=== PATIENT | female | born 1935 | race Caucasian/White ===

== ENCOUNTER 2022-06-02 20:59 | Inpatient (IN) ==
[2022-06-02 21:40] LABS: Basophils # (auto) 0.08 K/uL (0-0.2); Basophils % (auto) 0.7 %; Eosinophils # (auto) 0.08 K/uL (0-0.50); Eosinophils % (auto) 0.7 %; Hematocrit (blood only) 39.5 % (34.1-44.9); Hemoglobin 12.4 g/dl (12.0-16.0); Immature Granulocytes # (auto) 0.08 K/uL (0.00-0.02); Immature Granulocytes % (auto) 0.7 %; Lymphocytes # (auto) 1.26 K/uL (1.2-3.4); Lymphocytes % (auto) 11.4 %; Mean Corpuscular Hemoglobin 26.4 pg (25.0-34.0); Mean Corpuscular Hgb Conc 31.4 g/dL (32.0-36.0); Mean Platelet Volume 10.9 fL (9.4-12.3); Monocytes # (auto) 1.19 K/uL (0.24-0.82); Monocytes % (auto) 10.7 %; Neutrophils # (auto) 8.38 K/uL (1.4-6.5); Neutrophils % (auto) 75.8 %; Platelet Count 313 K/uL (130-400); RDW Coefficient of Variation 14.9 % (11.5-14.5); RDW Standard Deviation 45.7 fL (36.4-46.3); White Blood Count 11.07 K/ul (4.8-10.8)
[2022-06-02 21:42] LABS: INR 1.3 (0.9-1.1); Partial Thromboplastin Ratio 1.1; Partial Thromboplastin Time 31.5 Seconds (21.0-31.0); Prothrombin Time 13.7 Seconds (9.0-12.0)
[2022-06-02 21:49] LABS: Alanine Aminotransferase 4 U/L (7-52); Albumin Globulin Ratio 1.1 (0.9-2); Albumin Level 3.7 gm/dl (3.4-5.0); Alkaline Phosphatase 93 U/L (34-104); Anion Gap 10 (3-11); Aspartate Aminotransferase 24 U/L (13-39); BUN Creatinine Ratio 19.2 (10-20); Bilirubin,Total 0.8 mg/dl (0.2-1.0); Blood Urea Nitrogen 14 mg/dl (6-23); Calcium 9.3 mg/dl (8.5-10.1); Carbon Dioxide 28 mmol/L (21-32); Chloride 99 mmol/L (98-107); Est GFR (African American) 87.7 ml/min; Est GFR (Non-African American) 75.6 ml/min; Globulin 3.5 gm/dl (2.5-4.0); Glucose 132 mg/dl (70-99(Fasting)); Potassium 3.9 mmol/L (3.5-5.1); Sodium 137 mmol/L (136-145); Total Protein 7.2 gm/dl (6.0-8.3)
--- NOTE | 2022-06-02 22:20 | Emergency Department Note ---
History of Present Illness General Chief complaint: Cardiac Assessment Stated complaint: CHEST PRESSURE Time Seen by Provider: 06/02/22 22:04 Source: patient and family (Son and [id number] who are at bedside) Mode of arrival: ambulatory Limitations: no limitations History of Present Illness This patient is a an 86-year-old female who comes in with left-sided chest pain that radiates to her back and arm started around 730. They called the ambulance and she received aspirin and 1 nitro spray she now has no pain she has no shortness of breath she wears oxygen if needed at home she is started on macro Sanders for a UTI today. She fell about a week ago but no recent fall no nausea vomiting abdominal pain she feels better at present. Home Medications Medication Instructions Recorded Confirmed Type apixaban 5 mg tablet (Eliquis) 5 mg PO BID 06/02/22 06/02/22 History calcium carbonate 500 mg calcium 500 mg PO .DAILY WITH LUNCH 06/02/22 06/02/22 History (1,250 mg) chewable tablet cholecalciferol (vitamin D3) 25 25 mcg PO .DAILY WITH LUNCH 06/02/22 06/02/22 History mcg (1,000 unit) tablet (Vitamin D3) losartan 25 mg tablet 50 mg PO QPM 06/02/22 06/02/22 History metoprolol tartrate 25 mg tablet 25 mg PO BID 06/02/22 06/02/22 History montelukast 10 mg tablet 10 mg PO QPM 06/02/22 06/02/22 History nitrofurantoin macrocrystal 50 mg 50 mg PO BID 06/02/22 06/02/22 History capsule oxybutynin chloride 5 mg tablet 5 mg PO BID 06/02/22 06/02/22 History pantoprazole 20 mg tablet,delayed 20 mg PO DAILYBB 06/02/22 06/02/22 History release raloxifene 60 mg tablet 60 mg PO QAM 06/02/22 06/02/22 History rosuvastatin 20 mg tablet 20 mg PO QPM 06/02/22 06/02/22 History sertraline 50 mg tablet 50 mg PO QAM 06/02/22 06/02/22 History Allergies Allergy/AdvReac Type Severity Reaction Status Date / Time Penicillins Allergy Rash Verified 06/02/22 23:14 Sulfa (Sulfonamide Allergy Rash Verified 06/02/22 23:14 Antibiotics) Past Med/Surg History Social History Smoking Status: Never smoker Preferred Language: Congolese Feels Safe at Home: Yes Immunizations: Past medical historycristina had a cath 4 years ago in [place] which was complicated by aortic dissection. She is on Eliquis as she had a PE/DVT on December 16. Social historycristina is followed by Sissy Pathak and lives in [place] Review of Systems A total of 10 systems reviewed and were otherwise negative Physical Exam Vital Signs Vital Signs - 24 hr 06/02/22 21:20 06/02/22 21:24 06/02/22 22:00 Temperature 36.5 C Temperature Source Oral Pulse Rate 99 H 95 H Pulse Rate from SpO2 Sensor 94 H Respiratory Rate 24 28 H Respiratory Effort / Characteristics Non-Labored Spontaneous Respiratory Depth Normal Normal Blood Pressure 103/72 127/90 Blood Pressure Mean 82 102 Pulse Oximetry 99 97 Oxygen Delivery Method Nasal Cannula Nasal Cannula Nasal Cannula Oxygen Flow Rate 3 3 3 Sepsis New/Unexplained Change in Mental Status N/A Sepsis Action Taken by Nursing No Action Required 06/02/22 22:30 06/02/22 23:00 06/03/22 00:00 Temperature Temperature Source Pulse Rate 91 H 84 94 H Pulse Rate from SpO2 Sensor 91 H 83 95 H Respiratory Rate 28 H 26 H 26 H Respiratory Effort / Characteristics Respiratory Depth Blood Pressure 129/88 144/84 H 143/118 H Blood Pressure Mean 101 104 126 Pulse Oximetry 94 96 97 Oxygen Delivery Method Nasal Cannula Nasal Cannula Nasal Cannula Oxygen Flow Rate 3 3 3 Sepsis New/Unexplained Change in Mental Status Sepsis Action Taken by Nursing General: Well developed well nourished older female who in no acute distress, breathing comfortably on room air. Normal speech HEENT: Normal cephalic atraumatic. Pupils are equal round and reactive to light . Extraocular movements are intact. Oropharynx is pink with moist mucous membranes. No swelling of the mouth lips or tongue. Neck: Supple with a midline trachea. No meningeal signs or stiffness, no JVD or bruits. No Stridor. Chest: Clear to auscultation bilaterally. No wheezes or rhonchi. No increased work of breathing. Heart: Regular rate and rhythm without murmurs or gallops. Abdomen: Soft nontender, nondistended without rebound guarding or rigidity. Extremities: No cyanosis clubbing or edema. No calf tenderness or assymetry Spine/Back. Non tender to palpation. No CVA tenderness Skin: Good turgor without rashes. Neurologic exam: Cranial nerves two through 12 are intact. Motor and sensation are intact and symmetrical throughout. Course Administered Medications Discontinued Medications Ioversol (Optiray 320 500ml) 125 ml IV ONCE ONE Stop: 06/03/22 00:00 Last Admin: 06/02/22 23:59 Dose: 105 ml Documented By: EMILE Medical Decision Making Differential Diagnosis Acute coronary syndrome, arrhythmia, aortic pathology, PE, electrolyte or metabolic abnormality, infection Medical Records Attestation: I reviewed the patient's medical records. Home Medications Current Medication List: was personally reviewed by me Laboratory Data Attestation: I reviewed the patient's lab results. Result diagrams: 06/02/22 21:15 06/02/22 21:15 Lab Results 06/02/22 06/02/22 06/02/22 Range/Units 21:15 21:15 21:15 WBC 11.07 H (4.8-10.8) K/ul RBC 4.70 (3.93-5.22) M/uL Hgb 12.4 (12.0-16.0) g/dl Hct 39.5 (34.1-44.9) % MCV 84.0 (80.0-100.0) fL MCH 26.4 (25.0-34.0) pg MCHC 31.4 L (32.0-36.0) g/dL RDW Std Deviation 45.7 (36.4-46.3) fL RDW Coeff of Mercedes 14.9 H (11.5-14.5) % Plt Count 313 (130-400) K/uL MPV 10.9 (9.4-12.3) fL Immature Gran % (Auto) 0.7 % Neut % (Auto) 75.8 % Lymph % (Auto) 11.4 % [place] % (Auto) 10.7 % Eos % (Auto) 0.7 % Baso % (Auto) 0.7 % Neut # (Auto) 8.38 H (1.4-6.5) K/uL Lymph # (Auto) 1.26 (1.2-3.4) K/uL [place] # (Auto) 1.19 H (0.24-0.82) K/uL Eos # (Auto) 0.08 (0-0.50) K/uL Baso # (Auto) 0.08 (0-0.2) K/uL Immature Gran # (Auto) 0.08 H (0.00-0.02) K/uL PT 13.7 H (9.0-12.0) Seconds INR 1.3 H (0.9-1.1) APTT 31.5 H (21.0-31.0) Seconds PTT Ratio 1.1 D-Dimer (0-500) ug/L FEU Sodium 137 (136-145) mmol/L Potassium 3.9 (3.5-5.1) mmol/L Chloride 99 (98-107) mmol/L Carbon Dioxide 28 (21-32) mmol/L Anion Gap 10 (3-11) BUN 14 (6-23) mg/dl Creatinine 0.73 (0.6-1.2) mg/dl Est Cr Clr Drug Dosing Not Reportable Est GFR ( Amer) 87.7 ml/min Est GFR (Non-Af Amer) 75.6 ml/min BUN/Creatinine Ratio 19.2 (10-20) Glucose 132 H (70-99(Fasting)) mg/dl Calcium 9.3 (8.5-10.1) mg/dl Total Bilirubin 0.8 (0.2-1.0) mg/dl AST 24 (13-39) U/L ALT 4 L (7-52) U/L Alkaline Phosphatase 93 (34-104) U/L Troponin I High Sens 251.2 H* (0-14) pg/ml Total Protein 7.2 (6.0-8.3) gm/dl Albumin 3.7 (3.4-5.0) gm/dl Globulin 3.5 (2.5-4.0) gm/dl Albumin/Globulin Ratio 1.1 (0.9-2) Lipase (11-82) U/L SARS-CoV-2, RNA, NAAT (NEGATIVE) 06/02/22 06/02/22 06/02/22 Range/Units 21:15 22:27 22:44 WBC (4.8-10.8) K/ul RBC (3.93-5.22) M/uL Hgb (12.0-16.0) g/dl Hct (34.1-44.9) % MCV (80.0-100.0) fL MCH (25.0-34.0) pg MCHC (32.0-36.0) g/dL RDW Std Deviation (36.4-46.3) fL RDW Coeff of Mercedes (11.5-14.5) % Plt Count (130-400) K/uL MPV (9.4-12.3) fL Immature Gran % (Auto) % Neut % (Auto) % Lymph % (Auto) % [place] % (Auto) % Eos % (Auto) % Baso % (Auto) % Neut # (Auto) (1.4-6.5) K/uL Lymph # (Auto) (1.2-3.4) K/uL [place] # (Auto) (0.24-0.82) K/uL Eos # (Auto) (0-0.50) K/uL Baso # (Auto) (0-0.2) K/uL Immature Gran # (Auto) (0.00-0.02) K/uL PT (9.0-12.0) Seconds INR (0.9-1.1) APTT (21.0-31.0) Seconds PTT Ratio D-Dimer 6810 H* (0-500) ug/L FEU Sodium (136-145) mmol/L Potassium (3.5-5.1) mmol/L Chloride (98-107) mmol/L Carbon Dioxide (21-32) mmol/L Anion Gap (3-11) BUN (6-23) mg/dl Creatinine (0.6-1.2) mg/dl Est Cr Clr Drug Dosing Est GFR ( Amer) ml/min Est GFR (Non-Af Amer) ml/min BUN/Creatinine Ratio (10-20) Glucose (70-99(Fasting)) mg/dl Calcium (8.5-10.1) mg/dl Total Bilirubin (0.2-1.0) mg/dl AST (13-39) U/L ALT (7-52) U/L Alkaline Phosphatase (34-104) U/L Troponin I High Sens 637.3 H* D (0-14) pg/ml Total Protein (6.0-8.3) gm/dl Albumin (3.4-5.0) gm/dl Globulin (2.5-4.0) gm/dl Albumin/Globulin Ratio (0.9-2) Lipase 32 (11-82) U/L SARS-CoV-2, RNA, NAAT NEGATIVE (NEGATIVE) Imaging Data Attestation: I personally reviewed and interpreted this imaging study as follows: My Impression: Chest x-rayno acute infiltrate, failure, pneumothorax seen Radiologist's Impression: CTA of the chest -preliminary Findings Only See Final Report For Complete Findings CTA CHEST: Ascending thoracic aortic aneurysm measures 4.4 x 4.1 cm without dissection Respiratory motion artifact degrades the study through the lung bases. No obvious PE is identified Pulmonary nodules and mass lesion measuring up to 14 mm may reflect metastatic disease requiring definitive evalua tion No acute airspace disease or effusions Ill-defined hepatic hypodensities suspicious for hepatic metastatic disease noted Radiologist: Jose Antonio Nicholas MD Study ready at 00:01 and initial results ECG Data Attestation: I personally reviewed and interpreted this ECG as follows: Indication: + chest pain Rate (beats per minute): 99 Rhythm: + normal sinus ECG Intervals/blocks: + Normal QRS, + Normal QT and + Normal IN ECG [place]: + Normal ECG ST segments: + Normal ST segments ECG Findings: + Poor R wave progression; no PACs or no PVCs Comparison ECG Date: no prior available Additional Comments: EKG #2: Normal sinus rhythm rate of 84, no acute ischemic changes or ectopy. No significant change compared to EKG #1 MDM Narrative This patient comes in as described above. She was placed on a electronic device monitor in room B6. She is here for treatment evaluation of chest pain. She has no pain at present she received aspirin and nitro spray x1. IV access was established, EKG, chest x-ray multiple blood test was obtained. she was reassessed frequently. EKG initially does not show any ischemic changes it is second there is no change compared to the first. Troponin was elevated and second was even more elevated her D-dimer was also significantly elevated I did a CTA of her chest and there is no evidence of acute dissection or PE. She has some aneurysmal dilation of 4 cm of the thoracic aorta. She has no significant electrolyte or metabolic abnormalities . she has remained comfortable without EKG changes. I do think she needs to be admitted/observed and I have consulted Dr. Guerrero to to see her. Her second troponin is also elevated compared to the first and when I go back and check her she denies any chest pain is resting comfortably. She will need to be admitted and I am concerned that she may have an NSTEMI but she has no evidence of ST segment elevation STEMI at this point. She did receive aspirin prior to arrival. who saw her and will admit Continuous cardiac monitoring: Orders placed in the EMR for continuous cardiac monitoring. Fall interpretation he was found to be in normal sinus rhythm with with ectopy rate was 95. Impression & Plan Non-STEMI (non-ST elevated myocardial infarction), Chest pain, Aneurysm of thoracic aorta, Lab test negative for COVID-19 virus, Elevated troponin, Elevated d-dimer Discharge Plan Visit Data Chief Complaint: Cardiac Assessment Stated Complaint: CHEST PRESSURE ED Provider: Terrell Bullock Discharge Problem: Non-STEMI (non-ST elevated myocardial infarction), Chest pain, Aneurysm of thoracic aorta, Lab test negative for COVID-19 virus, Elevated troponin, Elevated d-dimer Patient Disposition: Admitted As Inpatient Discharge Instructions Interventions: ED Discharge Assessment Last Done: 06/03/22 01:19
[2022-06-02 22:24] LABS: Troponin I High Sensitivity 251.2 pg/ml (0-14)
[2022-06-02 22:53] LABS: D Dimer 6810 ug/L FEU (0-500)
[2022-06-02 23:38] LABS: Troponin I High Sensitivity 637.3 pg/ml (0-14)
[2022-06-02] MEDS ORDERED: OPTIRAY 320 500ml IV ONE (23:59)
[2022-06-03] MEDS ORDERED: NITROGLYCERIN SL 0.4 MG/TAB TAB SL PRN (01:46)
[2022-06-03] MEDS ORDERED: SODIUM CHLORIDE 0.9% 1000ML 1,000 ML IV SCH (01:46)
[2022-06-03] MEDS ORDERED: ACETAMINOPHEN 325 MG TAB PO PRN (01:46)
[2022-06-03] MEDS ORDERED: METOPROLOL TARTRATE 25 MG TAB PO STA (01:53)
[2022-06-03] MEDS ORDERED: ROSUVASTATIN CALCIUM 20 MG TAB PO STA (01:53)
[2022-06-03] MEDS ORDERED: ASPIRIN CHEW 324 MG PO STA (01:53)
[2022-06-03] MEDS ORDERED: APIXABAN 5 MG TABLET PO STA (01:53)
[2022-06-03] MEDS ORDERED: nitrofurantoin macrocrystaL 50 MG CAP PO STA (02:26)
[2022-06-03] MEDS ORDERED: INFLUENZA VACCINE HIGH DOSE PF 65+ 0.7 ML SYR IM ONE (02:48)
--- NOTE | 2022-06-03 03:01 | History and Physical Report ---
DATE OF ADMISSION: 06/03/2022. CHIEF COMPLAINT: Chest pain. HISTORY OF PRESENT ILLNESS: An 86-year-old female with past medical history significant for hyperlipidemia, impaired fasting glucose, history of asthma, allergic rhinitis, hypertension, GERD, vitamin D deficiency, history of constipation, female stress incontinence, osteoporosis, history of depression and anxiety,hx of DVT/PE after right femur fx repair this May who lives alone at home, ambulates with a walker. She is on regular diet. Was brought in because of chest pain. Son and [id number] are in the room. The patient, around 7:00 p.m., she had severe chest pain, it was also radiating to her left arm. When it was not getting better, she pressed the emergency button and brought in here. The patient is somewhat hard of hearing, but answering appropriately. She says after aspirin and nitroglycerin were given, the pain is resolved, but later she had some soreness in the chest, but right now she is saying the pain is gone. She denies any shortness of breath, no dizziness, no sweating, no nausea, no abdominal pain. Normal bowel and bladder movements. She has chronic swelling in the legs. Denies any headache. Vision is okay. She says she has some sinusitis and chronic cough. No sore throat, no difficulty swallowing. Appetite is not great. No fevers. Currently, resting comfortably and hemodynamically stable. ALLERGIES: PENICILLINS AND SULFA ANTIBIOTICS. PAST MEDICAL HISTORY: As mentioned above. PAST SURGICAL HISTORY: Cardiac catheterization, right femur fracture surgical repair, colonoscopy, total hysterectomy, bilateral removal of the ovaries and oviducts. MEDICATIONS: The patient is on Eliquis 5 mg p.o. b.i.d., calcium carbonate 500 mg p.o. daily with lunch, vitamin D 25 mcg p.o. daily, losartan 50 mg p.o. daily, metoprolol tartrate 25 mg p.o. b.i.d., montelukast 10 mg p.o. a.m., nitrofurantoin 50 mg p.o. b.i.d., oxybutynin 5 mg p.o. b.i.d., Protonix 20 mg p.o. daily, raloxifene 60 mg p.o. a.m., rosuvastatin 20 mg p.o. a.m., sertraline 50 mg p.o. a.m. FAMILY HISTORY: Significant for father has asthma, black lung; sister has breast cancer , sister has polio and valve replacement; mother has stroke. SOCIAL HISTORY: Currently lives alone. No smoking, no alcohol, no drug use. REVIEW OF SYSTEMS: As per HPI. Rest of the review of systems is negative. PHYSICAL EXAMINATION: GENERAL: The patient is old and frail, very hard of hearing, not in acute distress. VITAL SIGNS: Temperature 36.5, pulse 94, respiratory rate 26, blood pressure 143/118, oxygen 97% on 3 liters. HEENT: Pupils equal, round and reactive to light. Oral mucosa dry. NECK: No JVD, no neck masses. CARDIOVASCULAR: S1 and S2 heard. Regular rate and rhythm. No murmur, no gallop. RESPIRATORY SYSTEM: Normal AP diameter. No accessory muscle use. No wheezing, no crackles. ABDOMEN: Soft, bowel sounds present, nontender, no distention. CENTRAL NERVOUS SYSTEM: Cranial nerves II-XII grossly intact, nonfocal. EXTREMITIES: Lower extremity edema present, no erythema seen. LABORATORY DATA: WBC 11, hemoglobin 12.4, hematocrit 39.5, platelets 313. PT 13.7, INR 1.3, APTT 31.5, D-dimer 6810. Sodium 137, potassium 3.9, chloride 99, CO2 of 28, BUN 14, creatinine 0.7, serum glucose 132, calcium 9.3, total bilirubin 0.8, AST 24, ALT 4, alkaline phosphatase 93. Troponin I high sensitivity initially first set was 251, second set was 637, lipase 32. SARS-CoV-2 rapid test negative. IMAGING DATA: Chest x-ray, no acute findings. Poor inspiratory effort. ELECTROCARDIOGRAM: Normal sinus rhythm, rate of 84, No acute st changes seen. . No previous ekg to compare. ASSESSMENT AND PLAN: This is an 86-year-old female who presents with chest pain. 1. Chest pain: Possible non-ST elevated OK. As per family, the patient has history of some blockages. She had cardiac catheterization in 2018 at [facility], which ended up in complication, with aortic dissection. She was transferred to [facility] at that time. Currently with aspirin and nitroglycerin, the patient's pain is resolved. Will follow the repeat EKG with serial cardiac enzymes. The patient is already on Eliquis and metoprolol and statin. Will add aspirin. We will keep her n.p.o. Consult cardiology in the a.m. We will follow echocardiogram. Closely monitor in the [employer] tele for now.Will follow CTA chest. 2. History of deep venous thrombosis and pulmonary embolism: The patient developed deep venous thrombosis and pulmonary embolism after right femur fracture repair in November of this year.On eliquis. 3. Hypertension: Continue losartan and metoprolol. Will monitor the blood pressure. 4. Hyperlipidemia: On statin. 5. Depression and anxiety: On Zoloft. 6. History of asthma: On montelukast. Seems to be currently stable. 7. History of stress urinary incontinence: On oxybutynin. 8. Urinary tract infection: She seems to be started on Macrobid today, will continue. Follow the urinalysis. 9. Deep venous thrombosis prophylaxis: On Eliquis. DISPOSITION: Closely monitor in the [employer]. PT/OT prior to discharge. Social service to help with discharge planning. Job ID: [id number] VASILIY
[2022-06-03 06:08] LABS: Basophils # (auto) 0.06 K/uL (0-0.2); Basophils % (auto) 0.5 %; Eosinophils # (auto) 0.05 K/uL (0-0.50); Eosinophils % (auto) 0.4 %; Hemoglobin 12.3 g/dl (12.0-16.0); Immature Granulocytes # (auto) 0.15 K/uL (0.00-0.02); Immature Granulocytes % (auto) 1.2 %; Lymphocytes # (auto) 1.53 K/uL (1.2-3.4); Lymphocytes % (auto) 12.7 %; Mean Corpuscular Hemoglobin 26.5 pg (25.0-34.0); Mean Corpuscular Hgb Conc 32.4 g/dL (32.0-36.0); Mean Corpuscular Volume 81.7 fL (80.0-100.0); Mean Platelet Volume 10.4 fL (9.4-12.3); Monocytes # (auto) 1.29 K/uL (0.24-0.82); Monocytes % (auto) 10.7 %; Neutrophils # (auto) 9.01 K/uL (1.4-6.5); Neutrophils % (auto) 74.5 %; Platelet Count 302 K/uL (130-400); RDW Coefficient of Variation 15.1 % (11.5-14.5); RDW Standard Deviation 45.3 fL (36.4-46.3); Red Blood Count 4.65 M/uL (3.93-5.22); White Blood Count 12.09 K/ul (4.8-10.8)
[2022-06-03] MEDS: PANTOprazole 40 MG TAB PO SCH (06:34)
[2022-06-03 06:40] LABS: Troponin I High Sensitivity 2894.7 pg/ml (0-14)
[2022-06-03 06:53] LABS: BUN Creatinine Ratio 20.6 (10-20); Calcium 9.3 mg/dl (8.5-10.1); Est GFR (African American) 95.5 ml/min; Est GFR (Non-African American) 82.4 ml/min; Magnesium 2.2 mg/dl (1.7-2.4); Potassium 3.9 mmol/L (3.5-5.1)
--- NOTE | 2022-06-03 07:15 | CT Scan Report ---
CT ANGIOGRAM OF THE CHEST CLINICAL HISTORY: Atypical/left-sided chest pain. Dyspnea. COMPARISON STUDY: Chest x-ray dated 06/02/2022. TECHNIQUE: Following the IV administration of 105 cc of Optiray 320, CT angiogram of the chest was pe rformed from the upper abdomen to the thoracic inlet utilizing the pulmonary embolus protocol. Images are reviewed in the axial, sagittal, and coronal planes. 3-D MIPS images are created and assessed. I V contrast was administered without complication. A dose lowering technique was utilized adhering to the principles of ALARA. The examination is degraded by motion artifact. CT DOSE: 473.64 mGy.cm FINDINGS: Thyroid: Imaged portions of the thyroid gland are normal in size and attenuation. Thoracic aorta: There is atherosclerotic calcification of the thoracic aorta. There is aneurysmal dil atation of the ascending thoracic aorta which measures up to 4.4 cm in diameter. The remainder of the thoracic aorta is normal in caliber, and the arch demonstrates standard 3-vessel anatomy. No dissect ion is seen. Pulmonary vasculature: The pulmonary trunk is dilated, measuring up to 3.6 cm. This indicates pulmona ry artery hypertension. There are no filling defects identified in main, lobar, or segmental pulmonar y branches to suggest pulmonary embolus. Evaluation of the distal segmental and subsegmental branches is degraded by motion artifact. Heart: The heart is enlarged and without pericardial effusion. The coronary arteries are densely calc ified. Lungs and pleural spaces: Evaluation of the lung parenchyma is significantly degraded by motion artif act. There is elevation of the right hemidiaphragm. No airspace consolidation typical for pneumonia o r pleural effusion is identified. A 1.4 cm lobulated pulmonary nodule is seen in the right upper lobe on image #160. There are 2 right middle lobe pulmonary nodules seen on images #107 and #124 which me asure up to 6 mm. A 4 mm left apical nodule is seen on image #173. Scarring/atelectasis is seen at th e lung bases. Mediastinum: There is no mediastinal lymphadenopathy. Vianney: Clear. Axillae: There is no axillary lymphadenopathy. Upper abdomen: Numerous hepatic masses are consistent with multifocal hepatic metastatic disease. Skeletal structures: The skeletal structures are osteopenic. Spondylotic change is noted throughout t he spine. Arthritic change is seen in the shoulders. No lytic or blastic bony lesions are seen. IMPRESSION: 1. Motion degraded examination. 2. There is no evidence of pulmonary embolus in the main, lobar, or segmental pulmonary arteries. 3. There is no airspace consolidation typical for pneumonia or pleural effusion. 4. There is evidence of diffuse/multifocal hepatic metastatic disease. 5. Scattered pulmonary nodules as above. The largest is in the right upper lobe and measures 1.4 cm. These are pathologically indeterminate but highly suspicious for neoplasm given the hepatic findings. 6. Cardiomegaly with evidence of pulmonary artery hypertension. 7. Aneurysmal dilatation of the ascending thoracic aorta measuring up to 4.4 cm. 8. Additional findings as above. ACT 112: Negative or not required by law. Electronically signed by: Vito De Los Santos M.D. 06/03/2022 7:12 AM
[2022-06-03 07:52] LABS: Estimated Average Glucose 114 mg/dl; Hemoglobin A1C 5.6 % (4.5-5.6)
--- NOTE | 2022-06-03 08:01 | XRay Report ---
SINGLE VIEW CHEST CLINICAL HISTORY: Atypical chest pain. FINDINGS: An AP, portable, upright chest radiograph is obtained. No prior studies are available for c omparison at the time of dictation. The heart is enlarged noting atherosclerotic calcification of the thoracic aorta. The pulmonary vasculature is noncongested. Chronic interstitial thickening is simila r to previous. There is elevation of the right hemidiaphragm with bibasilar scarring/atelectasis. No airspace consolidation or large pleural effusion is seen. A pulmonary nodule in the right upper lobe measures 1.4 cm. No pneumothorax is seen. The skeletal structures are osteopenic. The bony thorax is grossly intact. IMPRESSION: 1. Cardiomegaly with no acute cardiopulmonary abnormality. 2. A 1.4 cm pulmonary nodule is seen in the right upper lobe. ACT 112: Negative or not required by law. Electronically signed by: Vito De Los Santos M.D. 06/03/2022 7:59 AM
--- NOTE | 2022-06-03 08:14 | Cardiology Consultation ---
Date of Consultation June 03, 2022 Assessment & Plan (1) Non-STEMI (non-ST elevated myocardial infarction): (2) Chest pain: (3) LV dysfunction: (4) Pulmonary nodule: (5) Hepatic lesion: (6) Aneurysm of thoracic aorta: (7) CAD (coronary artery disease): Plan Patient admitted to [facility] after several hours of chest pain, consistent with possible angina. No acute ST/T wave changes on serial EKG's. Chest pain resolved with 1 Nitro spray by EMS Serial HS troponin trending higher - currently at 2894. She remains chest pain free. Elevated D.Dimer and CT scan was negative for PE (although significant artifact limits results). Echo revealed apical hypokinesis consistent with stress induced cardiomyopathy vs myocardial ischemia. She has a history of remote cath in 2018 in [place] with moderate non obstructive disease noted at that time and unfortunately had aortic dissection during procedure. she had been transferred to [place], but conservative therapies recommended and no surgical intervention required. 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 Recommend holding Eliquis for now and initiation of heparin without bolus. Continue ASA, statin, losartan. Transition metoprolol tartrate to evidence based beta zane metoprolol succinate 25 mg BID. Should she have recurrent chest pain, consider nitro ointment vs isosorbide initiation. Incidentally found to have enlarging pulmonary nodule RUL (previously 6 mm in Spring 2022), now 1.4 cm and hepatic masses, concerning for metastatic disease. This was NOT noted on CT scan from 12/2021 reviewed through [facility]. 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 Pulm nodules have increased in size since then. Discussed with hospitalist and he will address with family regarding how aggressive they wish to be, and further evaluation. Consider palliative care consult as well. Case discussed with Dr. Shen and hospitalist provider. Will follow. Supervising Physician Co-Signing Physician Notes Have seen and examined the patient. I reviewed the medical record and discussed the case with Anupam. I agree with the plan as outlined above. Given the totality of the patient's presentation and medical problems, I think it is best if we treat conservatively. History of Present Illness Reason for Consultation: Chest pain; Elevated troponin Requesting Physician: Dr. Guerrero Attending Physician: Dr. 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 Unfortunately during cardiac cath she had dissection of ascending aorta. She was transferred to [place] for possible repair, but she reports Ct surgery recommended close monitoring and no surgical intervention was required. Medical management was recommended at that time for non obstructive CAD. She has followed with [facility] for many years. Most recent echo in December 2021 with normal LVEF, mild . She also follows with pulmonology at [facility] for pulm nodules and history of asthma, hypoxia, on chronic supplemental O2. She was found to have a new RUL nodule measuring 6 mm in spring 2021. Apparently after discussion with family, conservative therapies preferred and no f/u was recommended. Patient was in usual state of health until yesterday afternoon when she describes chest tightness/squeezing sensation lasting approx 1-2 hours radiating to her left arm and her back. She denies associated diaphoresis, nausea, vomiting, SOB, palpitations. Due to persistent symptoms, EMS was summoned and she came to the ER for evaluation. On route, she was treated with 1 nitro spray which resolved her symptoms. On arrival, EKG demonstrating NSR with poor R wave progression but no acute ST/T wave changes. initial HS troponin slightly elevated, with serial troponin increasing. D.Dimer also elevated. Chest CT completed. Motion artifact limiting study. She was found to have a large pulmonary nodule measuring 1.4 cm on RUL. this was likely the 6 mm nodule noted on outside Chest CT spring 2021. She was also found to have hepatic masses concerning for metastatic disease. This was not present on outside CT scan in spring 2021. At time of consult, patient resting comfortably in bed. No recurrent chest pain or left arm pain. Denies current symptoms. Feeling well, just tired from lack of sleep. No orthopnea, PND or edema. No fever, cough, chills. No palpitations or tachypalpitations. Allergies Allergy/AdvReac Type Severity Reaction Status Date / Time Penicillins Allergy Rash Verified 06/02/22 23:14 Sulfa (Sulfonamide Allergy Rash Verified 06/02/22 23:14 Antibiotics) Home Medications Medication Instructions Recorded Confirmed Type apixaban 5 mg tablet (Eliquis) 5 mg PO BID 06/02/22 06/02/22 History calcium carbonate 500 mg calcium 500 mg PO .DAILY WITH LUNCH 06/02/22 06/02/22 History (1,250 mg) chewable tablet cholecalciferol (vitamin D3) 25 25 mcg PO .DAILY WITH LUNCH 06/02/22 06/02/22 History mcg (1,000 unit) tablet (Vitamin D3) losartan 25 mg tablet 50 mg PO QPM 06/02/22 06/02/22 History metoprolol tartrate 25 mg tablet 25 mg PO BID 06/02/22 06/02/22 History montelukast 10 mg tablet 10 mg PO QPM 06/02/22 06/02/22 History nitrofurantoin macrocrystal 50 mg 50 mg PO BID 06/02/22 06/02/22 History capsule oxybutynin chloride 5 mg tablet 5 mg PO BID 06/02/22 06/02/22 History pantoprazole 20 mg tablet,delayed 20 mg PO DAILYBB 06/02/22 06/02/22 History release raloxifene 60 mg tablet 60 mg PO QAM 06/02/22 06/02/22 History rosuvastatin 20 mg tablet 20 mg PO QPM 06/02/22 06/02/22 History sertraline 50 mg tablet 50 mg PO QAM 06/02/22 06/02/22 History Patient History Social History Smoking Status: Never smoker Hx Alcohol Use: No Hx Substance Use: No Preferred Language: [place] Calender Let Off Helper Required: No Beliefs That Will Affect Care: None Current Living Situation: Alone Current Living Situation Comment: pt family has been coming around to provide 24 hour care recently Feels Safe at Home: Yes Safety Concerns: Feels Safe At This Time Assistive Devices: Walker Review of Systems Review of Systems: All systems reviewed & are unremarkable except as noted in HPI & below Physical Exam Constitutional: WD/WN, vitals as above + frail appearing; no acute distress Respiratory: normal respiratory effort; no labored breathing Auscultation: + diminished lung sounds; no crackles and no wheezes Cardiovascular: Rate/Rhythm: regular rate and regular rhythm Heart Sounds: + murmur (II/ systolic murmur LSB) Vessels: no JVD Extremities: + edema (non pitting ankle edema) Gastrointestinal (Abdomen): normal bowel sounds, soft, nontender, no hepatosplenomegaly Psychiatric: A+Ox3, euthymic affect Results & Data ([facility]) Vital Signs (Past 12 Hours) Vital Signs Temp Pulse Pulse Resp BP BP Pulse Ox 06/03/22 07:49 36.9 C 76 17 159/91 H 98 06/03/22 02:00 06/03/22 01:37 36.4 C L 81 18 153/95 H 97 06/03/22 02:25 36.6 C 99 H 24 164/104 H 98 06/03/22 02:10 95 H 06/03/22 01:02 94 H 29 H 112/64 96 06/03/22 00:30 93 H 22 135/96 96 06/03/22 00:00 94 H 26 H 143/118 H 97 06/02/22 23:00 84 26 H 144/84 H 96 06/02/22 22:30 91 H 28 H 129/88 94 06/02/22 22:00 95 H 28 H 127/90 97 06/02/22 21:24 06/02/22 21:20 36.5 C 99 H 24 103/72 99 O2 Del Method O2 Flow Rate 06/03/22 07:49 Nasal Cannula 3 06/03/22 02:00 Nasal Cannula 3 06/03/22 01:37 Nasal Cannula 3 06/03/22 02:25 Nasal Cannula 3 06/03/22 02:10 06/03/22 01:02 Nasal Cannula 3 06/03/22 00:30 Nasal Cannula 3 06/03/22 00:00 Nasal Cannula 3 06/02/22 23:00 Nasal Cannula 3 06/02/22 22:30 Nasal Cannula 3 06/02/22 22:00 Nasal Cannula 3 06/02/22 21:24 Nasal Cannula 3 06/02/22 21:20 Nasal Cannula 3 Laboratory Results Cardiac Enzymes 06/02/22 06/02/22 06/03/22 Range/Units 21:15 22:44 00:58 AST 24 (13-39) U/L Troponin I High Sens 251.2 H* 637.3 H* D 1649.6 H* D (0-14) pg/ml 06/03/22 Range/Units 05:28 AST (13-39) U/L Troponin I High Sens 2894.7 H* D (0-14) pg/ml Coagulation 06/02/22 Range/Units 21:15 PT 13.7 H (9.0-12.0) Seconds APTT 31.5 H (21.0-31.0) Seconds CBC 06/02/22 06/03/22 Range/Units 21:15 05:28 WBC 11.07 H 12.09 H (4.8-10.8) K/ul RBC 4.70 4.65 (3.93-5.22) M/uL Hgb 12.4 12.3 (12.0-16.0) g/dl Hct 39.5 38.0 (34.1-44.9) % Plt Count 313 302 (130-400) K/uL Neut # (Auto) 8.38 H 9.01 H (1.4-6.5) K/uL Lymph # (Auto) 1.26 1.53 (1.2-3.4) K/uL Cuming # (Auto) 1.19 H 1.29 H (0.24-0.82) K/uL Eos # (Auto) 0.08 0.05 (0-0.50) K/uL Baso # (Auto) 0.08 0.06 (0-0.2) K/uL Comprehensive Metabolic Panel 06/02/22 06/03/22 Range/Units 21:15 05:28 Sodium 137 137 (136-145) mmol/L Potassium 3.9 3.9 (3.5-5.1) mmol/L Chloride 99 101 (98-107) mmol/L Carbon Dioxide 28 28 (21-32) mmol/L BUN 14 13 (6-23) mg/dl Creatinine 0.73 0.63 (0.6-1.2) mg/dl Glucose 132 H 120 H (70-99(Fasting)) mg/dl Calcium 9.3 9.3 (8.5-10.1) mg/dl AST 24 (13-39) U/L ALT 4 L (7-52) U/L Alkaline Phosphatase 93 (34-104) U/L Total Protein 7.2 (6.0-8.3) gm/dl Albumin 3.7 (3.4-5.0) gm/dl Intake and Output 06/02/22 06/03/22 06/03/22 22:59 06:59 14:59 Other: Other Intake Source NPO Weight 88.9 kg 88.9 kg Weight Measurement Method Built in [facility] Patient Weight 06/04/22 06:59 Weight 88.9 kg Diagnostic Findings Echo report reviewed from admission: Moderate concentric LVH hypokinesis to akinesis of the apical and mid segments of the LV with relative sparing of the basal segments. This is best demonstrated with the administration of ultrasound contrast. LV systolic function is mild to moderately reduced. LVEF 35-40% Mild TR Mild pulm hypertension Grade I diastolic dysfunction. RV is normal in size and function. Findings are compatible with myocardial ischemia or stress induced cardiomyopathy EKG reviewed from admission: NSR with possible old anterior infarct. Poor R wave progression No acute ST/T wave changes noted Repeat EKG NSR Possible Anterolateral infarct No change from previous Telemetry reviewed: NSR with [facility] PAC's. No concerning arrhythmias. Chest X-Ray 06/02/22 21:18 SINGLE VIEW CHEST CLINICAL HISTORY: Atypical chest pain. FINDINGS: An AP, portable, upright chest radiograph is obtained. No prior studies are available for comparison at the time of dictation. The heart is enlarged noting atherosclerotic calcification of the thoracic aorta. The pulmonary vasculature is noncongested. Chronic interstitial thickening is similar to previous. There is elevation of the right hemidiaphragm with bibasilar scarring/atelectasis. No airspace consolidation or large pleural effusion is seen. A pulmonary nodule in the right upper lobe measures 1.4 cm. No pneumothorax is seen. The skeletal structures are osteopenic. The bony thorax is grossly intact. IMPRESSION: 1. Cardiomegaly with no acute cardiopulmonary abnormality. 2. A 1.4 cm pulmonary nodule is seen in the right upper lobe. Chest CTA 06/02/22 23:06 IMPRESSION: 1. Motion degraded examination. 2. There is no evidence of pulmonary embolus in the main, lobar, or segmental pulmonary arteries. 3. There is no airspace consolidation typical for pneumonia or pleural effusion. 4. There is evidence of diffuse/multifocal hepatic metastatic disease. 5. Scattered pulmonary nodules as above. The largest is in the right upper lobe and measures 1.4 cm. These are pathologically indeterminate but highly susp icious for neoplasm given the hepatic findings. 6. Cardiomegaly with evidence of pulmonary artery hypertension. 7. Aneurysmal dilatation of the ascending thoracic aorta measuring up to 4.4 cm. 8. Additional findings as above. ACT 112: Negative or not required by law. Electronically signed by: Vito De Los Santos M.D. 06/03/2022 7:12 AM OUTSIDE RECORDS/PRIOR DATA: CT 12/08 showed stable pulmonary nodules in the left lower lobe. There is a new 6mm pulmonary nodule in the RUL. CT of the abdomen from December 2021 at [facility]: Impression: 1. No abdominal or pelvic mass, adenopathy or inflammatory change identified. Note that the lack of IV contrast reduces the sensitivity the exam for detection of parenchymal or bowel pathology. 2. No free intraperitoneal fluid or free intraperitoneal gas identified and no bowel injury is seen Echo report reviewed from December 2021 at [facility]: Technically difficult study. Normal left ventricle size. The left ventricle has low normal systolic function. The estimated left ventricular ejection fraction is 50-55%. Moderately dilated right ventricle. The right ventricle has mildly decreasedfunction. Calcified aortic valve with mild aortic stenosis. The aortic valve area is 1.9 cm2 and the mean gradient is 8 mmHg. Thickened mitral valve with mild regurgitation. Mild to moderate tricuspid regurgitation. Mild left atrial enlargement. The right atrium is mildly enlarged. Mild pulmonary hypertension; the estimated pulmonary artery systolic pressure is 49 mmHg. The ascending aorta is dilated at 4 cm. There is an impaired relaxation pattern consistent with diastolic dysfunction grade 1. Microbubble contrast with Definity was administered for left ventricular opacification. The pericardial space is echodense that is likely prominent epicardial fat. Outside echo report reviewed from 04/2021: Technically difficult study. Normal left ventricular size. The left ventricle has normal systolic function. The estimated left ventricular ejection fraction is 55-60%. Normal right ventricle size. The right ventricle has normal function. Thickened aortic valve. The aortic valve area is 2.9 cm2 and the mean gradient is 4 mmHg. Moderate left atrial enlargement. The ascending aorta is dilated at 4.2 cm. There is an impaired relaxation pattern consistent with diastolic dysfunction grade 1. 01/2018 CATH -([facility] via [facility], LVEF 55%, LAD large vessel has mild 40% mid plaquing, LCX medium-size vessel has mild-mod 40-50% proximal plaquing, RCA large dominant vessel and has 60% proximal and mid stenosis, dissection of ascending aorta, patient transferred to [facility] for emergent aortic root repair. Medications Administered Current Inpatient Medications Acetaminophen (Acetaminophen 325 Mg Tab) 650 mg PO Q4H PRN PRN Reason: Pain or Fever Stop: 07/03/22 01:45 Apixaban (Apixaban 5 Mg Tablet) 5 mg PO BID [facility] Stop: 07/03/22 08:59 Aspirin (Aspirin 81 Mg Ectab) 81 mg PO QAM [facility] Stop: 07/03/22 08:59 Last Admin: 06/03/22 08:46 Dose: 81 mg Calcium Carbonate (Calcium Carbonate 1250mg Tab) 1,250 mg PO QDL [facility] Stop: 07/03/22 11:29 Sodium Chloride (Nss 1000ml) 1,000 mls @ 75 mls/hr IV .[id number] [facility] Stop: 06/03/22 15:05 Last Admin: 06/03/22 02:59 Dose: 75 mls/hr Heparin Sodium/Dextrose (Heparin Sodium/Dextrose) 25,000 units in 500 mls @ 23 mls/hr IV .[id number] [facility]; Protocol Stop: 07/03/22 09:29 Last Admin: 06/03/22 09:55 Dose: 1,150 units/hr, 23 mls/hr Losartan Potassium (Losartan Potassium 50 Mg Tab) 50 mg PO QPM [facility] Stop: 07/03/22 20:59 Metoprolol Tartrate (Metoprolol Tartrate 25 Mg Tab) 25 mg PO BID [facility] Stop: 07/03/22 08:59 Last Admin: 06/03/22 08:48 Dose: 25 mg Montelukast Sodium (Montelukast Sodium 10 Mg Tablet) 10 mg PO QPM [facility] Stop: 07/03/22 20:59 Nitrofurantoin Macrocrystals (Nitrofurantoin Macrocrystal 50 Mg Cap) 50 mg PO BID [facility] Stop: 06/08/22 23:59 Last Admin: 06/03/22 08:46 Dose: 50 mg Nitroglycerin (Nitroglycerin Sl 0.4 Mg/Tab Tab) 0.4 mg SL UD PRN PRN Reason: Chest Pain Stop: 07/03/22 01:45 Oxybutynin Chloride (Oxybutynin Chloride 5 Mg Tab) 5 mg PO BID [facility] Stop: 07/03/22 08:59 Last Admin: 06/03/22 08:48 Dose: 5 mg Pantoprazole Sodium (Pantoprazole 40 Mg Tab) 40 mg PO DAILYBB [facility] Stop: 07/03/22 06:29 Last Admin: 06/03/22 06:34 Dose: 40 mg Raloxifene HCl (Raloxifene Hcl 60 Mg Tab) 60 mg PO QAM [facility] Stop: 07/03/22 08:59 Last Admin: 06/03/22 08:46 Dose: 60 mg Rosuvastatin Calcium (Rosuvastatin Calcium 20 Mg Tab) 20 mg PO QPM [facility] Stop: 07/03/22 20:59 Sertraline HCl (Sertraline Hcl 50 Mg Tablet) 50 mg PO QAM [facility] Stop: 07/03/22 08:59 Last Admin: 06/03/22 08:46 Dose: 50 mg Vitamin D (Cholecalciferol 1,000 Units 25 Mcg Tab) 1,000 units PO QDL [facility] Stop: 07/03/22 11:29 (1) Aneurysm of thoracic aorta Presence of rupture: without rupture Thoracic aorta location: ascending aorta Qualified Code(s): I71.21 - Aneurysm of the ascending aorta, without rupture (2) Chest pain Chest pain type: precordial pain Qualified Code(s): R07.2 - Precordial pain
--- NOTE | 2022-06-03 08:35 | Electrocardiogram Report ---
Test Reason : Blood Pressure : / mmHG Vent. Rate : 099 BPM Atrial Rate : 099 BPM P-R Int : 128 ms QRS Dur : 078 ms QT Int : 366 ms P-R-T Axes : 035 -29 037 degrees QTc Int : 469 ms Poor data quality, interpretation may be adversely affected Normal sinus rhythm Low voltage QRS Poor R wave progression, consider anterior RI vs. lead placement vs. LVH Abnormal ECG No previous ECGs available Confirmed by Goyo Rai ([id number]) on 06/03/2022 8:35:01 AM Referred By: REFERRED SELF Confirmed By:Goyo Rai
--- NOTE | 2022-06-03 08:45 | Electrocardiogram Report ---
Test Reason : Blood Pressure : / mmHG Vent. Rate : 084 BPM Atrial Rate : 084 BPM P-R Int : 144 ms QRS Dur : 080 ms QT Int : 400 ms P-R-T Axes : 008 -29 037 degrees QTc Int : 472 ms Normal sinus rhythm Poor R wave progression, consider anterior [place] vs. lead placement vs. LVH Abnormal ECG When compared with ECG of 02-JUN-2022 21:07, No significant change was found Confirmed by Goyo Rai ([id number]) on 06/03/2022 8:45:32 AM Referred By: REFERRED SELF Confirmed By:Goyo Rai
[2022-06-03] MEDS: ASPIRIN 81 MG ECTAB PO SCH (08:46)
[2022-06-03] MEDS: SERTRALINE HCL 50 MG TABLET PO SCH (08:46)
[2022-06-03] MEDS: nitrofurantoin macrocrystaL 50 MG CAP PO SCH ×2 (08:46→20:14)
[2022-06-03] MEDS: RALOXIFENE HCL 60 MG TAB PO SCH (08:46)
[2022-06-03] MEDS: OXYBUTYNIN CHLORIDE 5 MG TAB PO SCH ×2 (08:48→20:15)
[2022-06-03] MEDS ORDERED: METOPROLOL TARTRATE 25 MG TAB PO SCH (09:00)
[2022-06-03] MEDS ORDERED: Heparin IV Adult Wt-Based Standard *NO* Bolus Protocol IV SCH (09:13)
[2022-06-03] MEDS: HEPARIN SODIUM/DEXTROSE 25,000 UNITS/500 ML BAG IV SCH (09:55)
[2022-06-03] MEDS: CALCIUM CARBONATE 1250MG TAB PO SCH (12:51)
[2022-06-03] MEDS: CHOLECALCIFEROL 1,000 UNITS 25 MCG TAB PO SCH (12:51)
--- NOTE | 2022-06-03 14:43 | Hospitalist Progress Note ---
Date of Service June 03, 2022 Assessment & Plan (1) Non-STEMI (non-ST elevated myocardial infarction): Plan: - presented with chest pain, no n/v, light headedness, shortness of breath - trop peaked at 2800 - ECG without ischemic changes - chest pain resolved since admission - Cardiology consulted - medical management for now with heparin drip, ASA, statin, BB - telemetry/PCU for now - patient and family likely does not want invasive therapy re cath - continue to monitor (2) CAD (coronary artery disease): Plan: - chest pain resolved - see plan as above for NSTEMI (3) Pulmonary nodule: Plan: - increased in size from prior CT to 1.4cm - incidental in setting of CTA for PE - family and patient made aware - will continue with no surveillance as previously discussed with outpatient pulmonary provider - do not want invasive diagnostic procedures or potential treatment is malignancy which is highly likely - noted (4) Hepatic lesion: Plan: - likely represents mets - no follow up per patient and family wishes - patient and family made aware of findings (5) Aneurysm of thoracic aorta: Plan: - noted on CTA chest (6) HTN (hypertension): Plan: - continue home meds (7) HLD (hyperlipidemia): Plan: - continue statin Plan DVT ppx: heparin Drip Code Status: Full Code - can likely address further about code status as patient is likely leaning toward DNR/DNI Dispo: PCU/Telemetry for now Manpreet Richey MD [facility] Medicine Admission and Anticipated Discharge Date Admission Date: June 03, 2022 Subjective Patient with HLD, asthma, HTN, GERD, h/o DVT/PE on Eliquis, CAD s/p PCI in 2018 complicated by aortic dissection presented with chest pain, trop trended up to 2800 and peaked, no ischemic changes on ECG. Chest pain resolved. Cardiology started heparin drip for 24 hours, metoprolol succinate, ASA, statin. CTA negative for PE but noted increased size of RUL nodule to 1.4cm and hepatic nodules concerning for mets. 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 Continues on heparin drip and medical management for NSTEMI. Patient feels better today, denies chest pain, shortness of breath, light headedness, n/v/d, abdominal pain. Review of Systems Review of Systems: All systems reviewed & are unremarkable except as noted in Subjective Physical Exam Physical Exam: GENERAL: The patient is old and frail, very hard of hearing, not in acute distress. HEENT: Pupils equal, round and reactive to light. Oral mucosa moist. NECK: No JVD, no neck masses. CARDIOVASCULAR: S1 and S2 heard. Regular rate and rhythm. No murmur, no gallop. RESPIRATORY SYSTEM: Normal AP diameter. No accessory muscle use. No wheezing, no crackles. ABDOMEN: Soft, bowel sounds present, nontender, no distention. CENTRAL NERVOUS SYSTEM: Cranial nerves II-XII grossly intact, nonfocal. EXTREMITIES: Lower extremity edema present, no erythema seen. Results & Data Results & Data ([facility]) Vital Signs (Past 12 Hours) Vital Signs Temp Pulse Resp BP Pulse Ox O2 Del Method O2 Flow Rate 06/03/22 08:00 Nasal Cannula 3 06/03/22 10:52 36.7 C 75 19 128/68 72 L Nasal Cannula 3 06/03/22 07:49 36.9 C 76 17 159/91 H 98 Nasal Cannula 3 Diagnostic Findings Laboratory Results WBC 12.09 K/ul (4.8-10.8) H 06/03/22 05:28 RBC 4.65 M/uL (3.93-5.22) 06/03/22 05:28 Hgb 12.3 g/dl (12.0-16.0) 06/03/22 05:28 Hct 38.0 % (34.1-44.9) 06/03/22 05:28 MCV 81.7 fL (80.0-100.0) 06/03/22 05:28 MCH 26.5 pg (25.0-34.0) 06/03/22 05:28 MCHC 32.4 g/dL (32.0-36.0) 06/03/22 05:28 RDW Std Deviation 45.3 fL (36.4-46.3) 06/03/22 05:28 RDW Coeff of Mercedes 15.1 % (11.5-14.5) H 06/03/22 05:28 Plt Count 302 K/uL (130-400) 06/03/22 05:28 MPV 10.4 fL (9.4-12.3) 06/03/22 05:28 Immature Gran % (Auto) 1.2 % 06/03/22 05:28 Neut % (Auto) 74.5 % 06/03/22 05:28 Lymph % (Auto) 12.7 % 06/03/22 05:28 [place] % (Auto) 10.7 % 06/03/22 05:28 Eos % (Auto) 0.4 % 06/03/22 05:28 Baso % (Auto) 0.5 % 06/03/22 05:28 Neut # (Auto) 9.01 K/uL (1.4-6.5) H 06/03/22 05:28 Lymph # (Auto) 1.53 K/uL (1.2-3.4) 06/03/22 05:28 [place] # (Auto) 1.29 K/uL (0.24-0.82) H 06/03/22 05:28 Eos # (Auto) 0.05 K/uL (0-0.50) 06/03/22 05:28 Baso # (Auto) 0.06 K/uL (0-0.2) 06/03/22 05:28 Immature Gran # (Auto) 0.15 K/uL (0.00-0.02) H 06/03/22 05:28 PT 13.7 Seconds (9.0-12.0) H 06/02/22 21:15 INR 1.3 (0.9-1.1) H 06/02/22 21:15 APTT 31.5 Seconds (21.0-31.0) H 06/02/22 21:15 PTT Ratio 1.1 06/02/22 21:15 D-Dimer 6810 ug/L FEU (0-500) H* 06/02/22 21:15 Sodium 137 mmol/L (136-145) 06/03/22 05:28 Potassium 3.9 mmol/L (3.5-5.1) 06/03/22 05:28 Chloride 101 mmol/L (98-107) 06/03/22 05:28 Carbon Dioxide 28 mmol/L (21-32) 06/03/22 05:28 Anion Gap 8 (3-11) 06/03/22 05:28 BUN 13 mg/dl (6-23) 06/03/22 05:28 Creatinine 0.63 mg/dl (0.6-1.2) 06/03/22 05:28 Est Cr Clr Drug Dosing 66.0 ml/min 06/03/22 05:28 Est GFR ( Amer) 95.5 ml/min 06/03/22 05:28 Est GFR (Non-Af Amer) 82.4 ml/min 06/03/22 05:28 BUN/Creatinine Ratio 20.6 (10-20) H 06/03/22 05:28 Glucose 120 mg/dl (70-99(Fasting)) H 06/03/22 05:28 Estimat Average Glucose 114 mg/dl 06/03/22 05:28 Hemoglobin A1c 5.6 % (4.5-5.6) 06/03/22 05:28 Calcium 9.3 mg/dl (8.5-10.1) 06/03/22 05:28 Magnesium 2.2 mg/dl (1.7-2.4) 06/03/22 05:28 Total Bilirubin 0.8 mg/dl (0.2-1.0) 06/02/22 21:15 AST 24 U/L (13-39) 06/02/22 21:15 ALT 4 U/L (7-52) L 06/02/22 21:15 Alkaline Phosphatase 93 U/L (34-104) 06/02/22 21:15 Troponin I High Sens 2745.6 pg/ml (0-14) H* 06/03/22 11:00 Total Protein 7.2 gm/dl (6.0-8.3) 06/02/22 21:15 Albumin 3.7 gm/dl (3.4-5.0) 06/02/22 21:15 Globulin 3.5 gm/dl (2.5-4.0) 06/02/22 21:15 Albumin/Globulin Ratio 1.1 (0.9-2) 06/02/22 21:15 Lipase 32 U/L (11-82) 06/02/22 22:44 SARS-CoV-2, RNA, NAAT NEGATIVE (NEGATIVE) 06/02/22 22:27 Impressions Chest X-Ray 06/02/22 21:18 SINGLE VIEW CHEST CLINICAL HISTORY: Atypical chest pain. FINDINGS: An AP, portable, upright chest radiograph is obtained. No prior studies are available for comparison at the time of dictation. The heart is enlarged noting atherosclerotic calcification of the thoracic aorta. The pulmonary vasculature is noncongested. Chronic interstitial thickening is similar to previous. There is elevation of the right hemidiaphragm with bibasilar scarring/atelectasis. No airspace consolidation or large pleural effusion is seen. A pulmonary nodule in the right upper lobe measures 1.4 cm. No pneumothorax is seen. The skeletal structures are osteopenic. The bony thorax is grossly intact. IMPRESSION: 1. Cardiomegaly with no acute cardiopulmonary abnormality. 2. A 1.4 cm pulmonary nodule is seen in the right upper lobe. ACT 112: Negative or not required by law. Electronically signed by: Vito De Los Santos M.D. 06/03/2022 7:59 AM Chest CTA 06/02/22 23:06 CT ANGIOGRAM OF THE CHEST CLINICAL HISTORY: Atypical/left-sided chest pain. Dyspnea. COMPARISON STUDY: Chest x-ray dated 06/02/2022. TECHNIQUE: Following the IV administration of 105 cc of Optiray 320, CT angiogram of the chest was performed from the upper abdomen to the thoracic inlet utilizing the pulmonary embolus protocol. Images are reviewed in the axial, sagittal, and coronal planes. 3-D MIPS images are created and assessed. IV contrast was administered without complication. A dose lowering technique was utilized adhering to the principles of ALARA. The examination is degraded by motion artifact. CT DOSE: 473.64 mGy.cm FINDINGS: Thyroid: Imaged portions of the thyroid gland are normal in size and attenuation. Thoracic aorta: There is atherosclerotic calcification of the thoracic aorta. There is aneurysmal dilatation of the ascending thoracic aorta which measures up to 4.4 cm in diameter. The remainder of the thoracic aorta is normal in caliber, and the arch demonstrates standard 3-vessel anatomy. No dissection is seen. Pulmonary vasculature: The pulmonary trunk is dilated, measuring up to 3.6 cm. This indicates pulmonary artery hypertension. There are no filling defects identified in main, lobar, or segmental pulmonary branches to suggest pulmonary embolus. Evaluation of the distal segmental and subsegmental branches is degraded by motion artifact. Heart: The heart is enlarged and without pericardial effusion. The coronary arteries are densely calcified. Lungs and pleural spaces: Evaluation of the lung parenchyma is significantly degraded by motion artifact. There is elevation of the right hemidiaphragm. No airspace consolidation typical for pneumonia or pleural effusion is identified. A 1.4 cm lobulated pulmonary nodule is seen in the right upper lobe on image #160. There are 2 right middle lobe pulmonary nodules seen on images #107 and #124 which measure up to 6 mm. A 4 mm left apical nodule is seen on image #173. Scarring/atelectasis is seen at the lung bases. Mediastinum: There is no mediastinal lymphadenopathy. Vianney: Clear. Axillae: There is no axillary lymphadenopathy. Upper abdomen: Numerous hepatic masses are consistent with multifocal hepatic metastatic disease. Skeletal structures: The skeletal structures are osteopenic. Spondylotic change is noted throughout the spine. Arthritic change is seen in the shoulders. No lytic or blastic bony lesions are seen. IMPRESSION: 1. Motion degraded examination. 2. There is no evidence of pulmonary embolus in the main, lobar, or segmental pulmonary arteries. 3. There is no airspace consolidation typical for pneumonia or pleural effusion. 4. There is evidence of diffuse/multifocal hepatic metastatic disease. 5. Scattered pulmonary nodules as above. The largest is in the right upper lobe and measures 1.4 cm. These are pathologically indeterminate but highly miranda spicious for neoplasm given the hepatic findings. 6. Cardiomegaly with evidence of pulmonary artery hypertension. 7. Aneurysmal dilatation of the ascending thoracic aorta measuring up to 4.4 cm. 8. Additional findings as above. ACT 112: Negative or not required by law. Electronically signed by: Vito De Los Santos M.D. 06/03/2022 7:12 AM Medications Administered Current Inpatient Medications Acetaminophen (Acetaminophen 325 Mg Tab) 650 mg PO Q4H PRN PRN Reason: Pain or Fever Stop: 07/03/22 01:45 Apixaban (Apixaban 5 Mg Tablet) 5 mg PO BID [facility] Stop: 07/03/22 08:59 Aspirin (Aspirin 81 Mg Ectab) 81 mg PO QAM [facility] Stop: 07/03/22 08:59 Last Admin: 06/03/22 08:46 Dose: 81 mg Calcium Carbonate (Calcium Carbonate 1250mg Tab) 1,250 mg PO QDL [facility] Stop: 07/03/22 11:29 Last Admin: 06/03/22 12:51 Dose: 1,250 mg Sodium Chloride (Nss 1000ml) 1,000 mls @ 75 mls/hr IV .[id number] [facility] Stop: 06/03/22 15:05 Last Admin: 06/03/22 02:59 Dose: 75 mls/hr Heparin Sodium/Dextrose (Heparin Sodium/Dextrose) 25,000 units in 500 mls @ 23 mls/hr IV .[id number] [facility]; Protocol Stop: 07/03/22 09:29 Last Admin: 06/03/22 09:55 Dose: 1,150 units/hr, 23 mls/hr Losartan Potassium (Losartan Potassium 50 Mg Tab) 50 mg PO QPM [facility] Stop: 07/03/22 20:59 Metoprolol Succinate (Metoprolol Succ 25mg Ext Rel Tab) 25 mg PO BID [facility] Stop: 07/03/22 20:59 Montelukast Sodium (Montelukast Sodium 10 Mg Tablet) 10 mg PO QPM [facility] Stop: 07/03/22 20:59 Nitrofurantoin Macrocrystals (Nitrofurantoin Macrocrystal 50 Mg Cap) 50 mg PO BID [facility] Stop: 06/08/22 23:59 Last Admin: 06/03/22 08:46 Dose: 50 mg Nitroglycerin (Nitroglycerin Sl 0.4 Mg/Tab Tab) 0.4 mg SL UD PRN PRN Reason: Chest Pain Stop: 07/03/22 01:45 Oxybutynin Chloride (Oxybutynin Chloride 5 Mg Tab) 5 mg PO BID [facility] Stop: 07/03/22 08:59 Last Admin: 06/03/22 08:48 Dose: 5 mg Pantoprazole Sodium (Pantoprazole 40 Mg Tab) 40 mg PO DAILYBB [facility] Stop: 07/03/22 06:29 Last Admin: 06/03/22 06:34 Dose: 40 mg Raloxifene HCl (Raloxifene Hcl 60 Mg Tab) 60 mg PO QAM [facility] Stop: 07/03/22 08:59 Last Admin: 06/03/22 08:46 Dose: 60 mg Rosuvastatin Calcium (Rosuvastatin Calcium 20 Mg Tab) 20 mg PO QPM [facility] Stop: 07/03/22 20:59 Sertraline HCl (Sertraline Hcl 50 Mg Tablet) 50 mg PO QAM [facility] Stop: 07/03/22 08:59 Last Admin: 06/03/22 08:46 Dose: 50 mg Vitamin D (Cholecalciferol 1,000 Units 25 Mcg Tab) 1,000 units PO QDL [facility] Stop: 07/03/22 11:29 Last Admin: 06/03/22 12:51 Dose: 1,000 units (1) Aneurysm of thoracic aorta Presence of rupture: without rupture Thoracic aorta location: ascending aorta Qualified Code(s): I71.21 - Aneurysm of the ascending aorta, without rupture
--- NOTE | 2022-06-03 17:00 | Electrocardiogram Report ---
Test Reason : Blood Pressure : / mmHG Vent. Rate : 085 BPM Atrial Rate : 085 BPM P-R Int : 148 ms QRS Dur : 092 ms QT Int : 394 ms P-R-T Axes : 018 -28 049 degrees QTc Int : 468 ms Sinus rhythm with Premature atrial complexes Poor R wave progression, consider anterior ND vs. lead placement vs. LVH Abnormal ECG When compared with ECG of 02-JUN-2022 23:15, Premature atrial complexes are now Present Confirmed by Goyo Rai ([id number]) on 06/03/2022 4:59:59 PM Referred By: REFERRED SELF Confirmed By:Goyo Rai
[2022-06-03 17:33] LABS: Partial Thromboplastin Ratio 1.8
[2022-06-03 17:43] LABS: Partial Thromboplastin Time 49.8 Seconds (21.0-31.0)
[2022-06-03] MEDS: METOPROLOL SUCC 25MG EXT REL TAB PO SCH (20:14)
[2022-06-03] MEDS: ROSUVASTATIN CALCIUM 20 MG TAB PO SCH (20:14)
[2022-06-03] MEDS: MONTELUKAST SODIUM 10 MG TABLET PO SCH (20:14)
[2022-06-03] MEDS: LOSARTAN POTASSIUM 50 MG TAB PO SCH (20:15)
[2022-06-04 06:04] LABS: Hematocrit (blood only) 36.7 % (34.1-44.9); Hemoglobin 11.7 g/dl (12.0-16.0); Mean Corpuscular Hemoglobin 26.2 pg (25.0-34.0); Mean Corpuscular Hgb Conc 31.9 g/dL (32.0-36.0); Mean Corpuscular Volume 82.1 fL (80.0-100.0); Platelet Count 299 K/uL (130-400); RDW Coefficient of Variation 15.1 % (11.5-14.5); RDW Standard Deviation 45.8 fL (36.4-46.3); Red Blood Count 4.47 M/uL (3.93-5.22); White Blood Count 12.38 K/ul (4.8-10.8)
[2022-06-04 06:29] LABS: Partial Thromboplastin Ratio 2.1
[2022-06-04 06:34] LABS: Albumin Level 3.4 gm/dl (3.4-5.0); BUN Creatinine Ratio 16.7 (10-20); Bilirubin,Total 0.8 mg/dl (0.2-1.0); Calcium 8.9 mg/dl (8.5-10.1); Est GFR (Non-African American) 83.7 ml/min; Globulin 3.4 gm/dl (2.5-4.0); Phosphorus 2.3 mg/dl (2.5-4.9); Potassium 3.6 mmol/L (3.5-5.1); Total Protein 6.8 gm/dl (6.0-8.3)
[2022-06-04] MEDS: HEPARIN SODIUM/DEXTROSE 25,000 UNITS/500 ML BAG IV SCH (06:34)
[2022-06-04] MEDS: PANTOprazole 40 MG TAB PO SCH (06:34)
[2022-06-04 06:39] LABS: Partial Thromboplastin Time 56.9 Seconds (21.0-31.0)
[2022-06-04] MEDS: SERTRALINE HCL 50 MG TABLET PO SCH (08:25)
[2022-06-04] MEDS: RALOXIFENE HCL 60 MG TAB PO SCH (08:25)
[2022-06-04] MEDS: nitrofurantoin macrocrystaL 50 MG CAP PO SCH ×2 (08:26→20:55)
[2022-06-04] MEDS: METOPROLOL SUCC 25MG EXT REL TAB PO SCH ×2 (08:26→20:56)
[2022-06-04] MEDS: ASPIRIN 81 MG ECTAB PO SCH (08:26)
[2022-06-04] MEDS: OXYBUTYNIN CHLORIDE 5 MG TAB PO SCH ×2 (08:26→20:54)
--- NOTE | 2022-06-04 09:08 | Cardiology Progress Note ---
Date of Service June 04, 2022 Assessment & Plan (1) Non-STEMI (non-ST elevated myocardial infarction): (2) Chest pain: (3) LV dysfunction: (4) Pulmonary nodule: (5) Hepatic lesion: (6) Aneurysm of thoracic aorta: (7) CAD (coronary artery disease): Plan Patient admitted to [facility] after several hours of chest pain, consistent with angina Chest pain resolved with 1 Nitro spray by EMS Serial HS troponin trended higher - peaking at 2894. IV heparin initiated yesterday due to reduced LV function with apical wall motion abnormality (Takosubo vs myocardial ischemia). Continue IV heparin for 48 hours (tomorrow 06/05, late morning). (Eliquis on hold during this time). She had abnormal EKG this morning with ST/T wave abnormality, again possibly consistent with possible Takotsubo vs myocardial ischemia. She was asymptomatic at the time. Continue ASA, losartan, rosuvastatin. Metoprolol tartrate transitioned to metoprolol succinate due to LV dysfunction. Given hypertension, add isosorbide 30 mg daily. She has a history of remote cath in 2018 in [place] with moderate non obstructive disease noted at that time and unfortunately had aortic dissection during procedure. she had been transferred to [place], but conservative therapies recommended and no surgical intervention required. Ongoing conservative therapies recommended. Appears euvolemic. Monitor fluid status. May need low dose loop diuretic/spironolactone given LV dysfunction. Elevated D.Dimer on admission - CT scan was negative for PE (although significant artifact limits results), unfortunately demonstrated enlarging pulmonary nodule RUL (previously 6 mm in Spring 2022), now 1.4 cm and hepatic masses, concerning for metastatic disease. This was NOT noted on CT scan from 12/2021 reviewed through [facility]. 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 Pulm nodules have increased in size since then. Discussed with hospitalist. Per family conversation, ongoing conservative therapies recommended. Consider palliative care consult as well. Case discussed with Dr. Shen and hospitalist provider. Will follow. Admission and Anticipated Discharge Date Admission Date: June 03, 2022 Supervising Physician Co-Signing Physician Notes I have seen and examined the patient. I discussed the case with Anupam and reviewed the medical record. I agree with the plan as outlined above. Subjective Patient resting in bed comfortably. She denies recurrent chest pain since admission. She had EKG this morning which demonstrated ST/T wave abnormality in V3-V5. Patient was apparently asymptomatic without chest pain at time of EKG. No SOB. No dizziness or lightheadedness. No orthopnea, PND or increased edema. Review of Systems Review of Systems: All systems reviewed & are unremarkable except as noted in HPI & below Physical Exam Constitutional: WD/WN, vitals as above + frail appearing; no acute distress Respiratory: normal respiratory effort; no labored breathing Auscultation: + diminished lung sounds; no crackles and no wheezes Cardiovascular: Rate/Rhythm: regular rate and regular rhythm Heart Sounds: + murmur (II/ systolic murmur LSB) Vessels: no JVD Extremities: + edema (non pitting) Gastrointestinal (Abdomen): normal bowel sounds, soft, nontender, no hepatosplenomegaly Psychiatric: A+Ox3, euthymic affect Results & Data ([facility]) Vital Signs (Past 12 Hours) Vital Signs Temp Pulse Pulse Resp BP Pulse Ox O2 Del Method 06/04/22 07:18 36.6 C 72 16 141/76 H 96 Nasal Cannula 06/04/22 03:35 37.4 C 84 17 147/85 H 98 Nasal Cannula 06/03/22 23:00 81 06/03/22 22:29 37.0 C 84 17 163/98 H 98 Nasal Cannula O2 Flow Rate 06/04/22 07:18 2 06/04/22 03:35 2 06/03/22 23:00 06/03/22 22:29 2 Laboratory Results Cardiac Enzymes 06/03/22 06/04/22 Range/Units 11:00 05:26 AST 40 H (13-39) U/L Troponin I High Sens 2745.6 H* (0-14) pg/ml Coagulation 06/03/22 06/04/22 Range/Units 16:26 05:26 APTT 49.8 H* 56.9 H* (21.0-31.0) Seconds CBC 06/04/22 Range/Units 05:26 WBC 12.38 H (4.8-10.8) K/ul RBC 4.47 (3.93-5.22) M/uL Hgb 11.7 L (12.0-16.0) g/dl Hct 36.7 (34.1-44.9) % Plt Count 299 (130-400) K/uL Comprehensive Metabolic Panel 06/04/22 Range/Units 05:26 Sodium 137 (136-145) mmol/L Potassium 3.6 (3.5-5.1) mmol/L Chloride 101 (98-107) mmol/L Carbon Dioxide 27 (21-32) mmol/L BUN 10 (6-23) mg/dl Creatinine 0.60 (0.6-1.2) mg/dl Glucose 114 H (70-99(Fasting)) mg/dl Calcium 8.9 (8.5-10.1) mg/dl AST 40 H (13-39) U/L ALT 6 L (7-52) U/L Alkaline Phosphatase 94 (34-104) U/L Total Protein 6.8 (6.0-8.3) gm/dl Albumin 3.4 (3.4-5.0) gm/dl Intake and Output 06/03/22 06/04/22 06/04/22 22:59 06:59 14:59 Intake Total 1199.717 / 1824.950 425.233 / 1824.950 Output Total 475 / 1125 500 / 1125 Balance 724.717 / 699.950 -74.767 / 699.950 Intake: IV 1199.717 / 1474.950 275.233 / 1474.950 Heparin Sodium/Dextrose 25,000 199.717 / 474.950 275.233 / 474.950 units In 500 ml @ 1,150 UNITS/ HR 23 mls/hr IV .[id number] [facility] Rx #:[id number] Sodium Chloride 0.9% 1000ML 1, 1000 / 1000 000 ml @ 75 mls/hr IV .[id number] [facility] Rx#:[id number] Oral 150 / 350 Output: Urine 150 / 300 Urine Amount (Catheter) 325 / 825 500 / 825 External 325 / 825 500 / 825 Other: # Unmeasured Voids 1 Weight 88.4 kg Weight Measurement Method Built in [facility] Diagnostic Findings Telemetry reviewed - NSR 70-80 bpm, occ PAC. No arrhythmias. EKG this morning reviewed - NSR with T wave inversion in V3-V6 leads Echo yesterday reviewed - Echo report reviewed from admission: Moderate concentric LVH hypokinesis to akinesis of the apical and mid segments of the LV with relative sparing of the basal segments. This is best demonstrated with the administration of ultrasound contrast. LV systolic function is mild to moderately reduced. LVEF 35-40% Mild TR Mild pulm hypertension Grade I diastolic dysfunction. RV is normal in size and function. 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
[2022-06-04] MEDS: ISOSORBIDE MONO EXTENDED REL 30 MG TABCR PO SCH (09:50)
[2022-06-04] MEDS: CHOLECALCIFEROL 1,000 UNITS 25 MCG TAB PO SCH (11:43)
[2022-06-04] MEDS: CALCIUM CARBONATE 1250MG TAB PO SCH (11:43)
--- NOTE | 2022-06-04 13:03 | Electrocardiogram Report ---
Test Reason : Blood Pressure : / mmHG Vent. Rate : 084 BPM Atrial Rate : 084 BPM P-R Int : 160 ms QRS Dur : 076 ms QT Int : 438 ms P-R-T Axes : 036 -26 143 degrees QTc Int : 517 ms Poor data quality, interpretation may be adversely affected Normal sinus rhythm T-wave inversion in Anterolateral leads Abnormal ECG When compared with ECG of 03-JUN-2022 09:00, Premature atrial complexes are no longer Present Borderline criteria for Lateral infarct are no longer Present Confirmed by Luis Whittington ([id number]) on 06/04/2022 1:02:49 PM Referred By: REFERRED SELF Confirmed By:Luis Whittington
[2022-06-04] MEDS ORDERED: POTASSIUM PHOS 3 MMOL/1 ML INFUSION IV STA (13:54)
[2022-06-04] MEDS ORDERED: POTASSIUM PHOSPHATE 15 MMOL in SODIUM CHLORIDE 0.9% 250 ML IV ONE (14:00)
--- NOTE | 2022-06-04 14:08 | Electrocardiogram Report ---
Test Reason : Blood Pressure : / mmHG Vent. Rate : 080 BPM Atrial Rate : 080 BPM P-R Int : 140 ms QRS Dur : 086 ms QT Int : 440 ms P-R-T Axes : 007 -28 151 degrees QTc Int : 507 ms Poor data quality, interpretation may be adversely affected Sinus rhythm Premature atrial complexes Anterolateral infarct , age undetermined Abnormal ECG When compared with ECG of 04-JUN-2022 05:45, (unconfirmed) Anterolateral infarct is now Present Confirmed by Luis Whittington ([id number]) on 06/04/2022 2:08:28 PM Referred By: REFERRED SELF Confirmed By:Luis Whittington
--- NOTE | 2022-06-04 17:14 | Hospitalist Progress Note ---
Date of Service June 04, 2022 Assessment & Plan (1) Non-STEMI (non-ST elevated myocardial infarction): Plan: - presented with chest pain, no n/v, light headedness, shortness of breath - trop peaked at 2894 - ECG without ischemic changes - chest pain resolved since admission - Cardiology on board - Echo showed moderate concentric left ventricular hypertrophy. Hypokinesis to akinesis of the apical and mid segment of the left ventricle with relative sparing of the basal segment. Ejection fraction 35 to 40% - medical management for now with heparin drip, ASA, statin, BB - patient and family likely does not want invasive therapy re cath - cardiology recommended to continue IV heparin drip for 48hr - Denies any chest pain pain (2) CAD (coronary artery disease): Plan: - chest pain resolved - see plan as above for NSTEMI (3) Pulmonary nodule: Plan: - increased in size from prior CT to 1.4cm - incidental in setting of CTA for PE - family and patient made aware - will continue with no surveillance as previously discussed with outpatient pulmonary provider - do not want invasive diagnostic procedures or potential treatment is malignancy which is highly likely (4) Hepatic lesion: Plan: - likely represents mets - no follow up per patient and family wishes - patient and family made aware of findings (5) Aneurysm of thoracic aorta: Plan: CTA chest showed aneurysmal dilatation of the ascending thoracic aorta measuring up to 4.4 cm. Continue monitor (6) HTN (hypertension): Plan: - continue home meds (7) HLD (hyperlipidemia): Plan: - continue statin Plan DVT ppx: heparin Drip Code Status: Full Code Dispo: PCU/Telemetry for now Admission and Anticipated Discharge Date Admission Date: June 03, 2022 Subjective Pt was seen and examined for follow of chest pain Lying in bed with no acute distress Pt said that she is not having any chest pain Denies any chest pain, palpitation, dizziness Review of Systems Review of Systems: All systems reviewed & are unremarkable except as noted in Subjective Physical Exam Physical Exam: General- No acute distress Head- atraumatic Eyes- PERRL, EOMI, ENT- oropharynx clear Neck- supple, no JVD Lungs- Diminished BS Heart- regular rhythm; +murmur Abdomen- normal bowel sounds, soft, nontender Extremities- no calf tenderness.+edema Neuro- alert, oriented, PERRL, EOMI; no facial palsy; no dysarthria Skin- warm & dry Results & Data Results & Data ([facility]) Vital Signs (Past 12 Hours) Vital Signs Temp Pulse Pulse Resp BP Pulse Ox O2 Del Method 06/04/22 16:00 36.6 C 67 18 108/58 L 94 Nasal Cannula 06/04/22 14:00 85 06/04/22 12:40 95 06/04/22 11:17 36.5 C 61 18 106/72 96 Nasal Cannula 06/04/22 08:23 Nasal Cannula 06/04/22 06:26 87 06/04/22 07:18 36.6 C 72 16 141/76 H 96 Nasal Cannula O2 Flow Rate 06/04/22 16:00 2 06/04/22 14:00 06/04/22 12:40 06/04/22 11:17 2 06/04/22 08:23 3 06/04/22 06:26 06/04/22 07:18 2 (1) Aneurysm of thoracic aorta Presence of rupture: without rupture Thoracic aorta location: ascending aorta Qualified Code(s): I71.21 - Aneurysm of the ascending aorta, without rupture
[2022-06-04] MEDS: MONTELUKAST SODIUM 10 MG TABLET PO SCH (20:55)
[2022-06-04] MEDS: LOSARTAN POTASSIUM 50 MG TAB PO SCH (20:55)
[2022-06-04] MEDS: ROSUVASTATIN CALCIUM 20 MG TAB PO SCH (20:56)
[2022-06-05] MEDS: HEPARIN SODIUM/DEXTROSE 25,000 UNITS/500 ML BAG IV SCH (03:54)
[2022-06-05] MEDS: PANTOprazole 40 MG TAB PO SCH (05:15)
[2022-06-05 06:05] LABS: Mean Corpuscular Hemoglobin 26.7 pg (25.0-34.0); Mean Corpuscular Hgb Conc 33.3 g/dL (32.0-36.0); Mean Corpuscular Volume 80.1 fL (80.0-100.0); Mean Platelet Volume 10.7 fL (9.4-12.3); Platelet Count 238 K/uL (130-400); RDW Coefficient of Variation 15.7 % (11.5-14.5); RDW Standard Deviation 45.1 fL (36.4-46.3); Red Blood Count 4.12 M/uL (3.93-5.22); White Blood Count 11.93 K/ul (4.8-10.8)
[2022-06-05 06:40] LABS: Partial Thromboplastin Ratio 2.4
[2022-06-05 06:45] LABS: Calcium 8.7 mg/dl (8.5-10.1); Chol HDL Ratio 19.9 (0-5); Creatinine Clr Calc Pharmacy 69.3 ml/min; Est GFR (Non-African American) 83.7 ml/min; Phosphorus 2.8 mg/dl (2.5-4.9); Potassium 3.9 mmol/L (3.5-5.1)
[2022-06-05 07:24] LABS: Partial Thromboplastin Time 65.1 Seconds (21.0-31.0)
[2022-06-05] MEDS: RALOXIFENE HCL 60 MG TAB PO SCH (08:45)
[2022-06-05] MEDS: CHOLECALCIFEROL 1,000 UNITS 25 MCG TAB PO SCH (08:46)
[2022-06-05] MEDS: CALCIUM CARBONATE 1250MG TAB PO SCH (08:46)
[2022-06-05] MEDS: ASPIRIN 81 MG ECTAB PO SCH (08:46)
[2022-06-05] MEDS: METOPROLOL SUCC 25MG EXT REL TAB PO SCH ×2 (08:46→20:20)
[2022-06-05] MEDS: SERTRALINE HCL 50 MG TABLET PO SCH (08:46)
[2022-06-05] MEDS: ISOSORBIDE MONO EXTENDED REL 30 MG TABCR PO SCH (08:46)
[2022-06-05] MEDS: OXYBUTYNIN CHLORIDE 5 MG TAB PO SCH ×2 (08:46→20:23)
[2022-06-05] MEDS: nitrofurantoin macrocrystaL 50 MG CAP PO SCH ×2 (08:46→20:20)
--- NOTE | 2022-06-05 09:04 | Cardiology Progress Note ---
Date of Service June 05, 2022 Assessment & Plan (1) Non-STEMI (non-ST elevated myocardial infarction): (2) Chest pain: (3) LV dysfunction: (4) Pulmonary nodule: (5) Hepatic lesion: (6) Aneurysm of thoracic aorta: (7) CAD (coronary artery disease): Plan Patient admitted to [facility] after several hours of chest pain, consistent with angina Chest pain resolved with 1 Nitro spray by EMS Serial HS troponin peaking at 2894, consistent with NSTEMI. IV heparin initiated due to reduced LV function with apical wall motion abnormality (Takosubo vs myocardial ischemia). IV heparin was continued for 48 hours. Stop this morning and resume home dose Eliquis 5 mg BID She remains chest pain free during admission. Continue ASA, losartan, rosuvastatin. Crestor dose increased to 40 mg given LDL of 88. Metoprolol tartrate transitioned to metoprolol succinate due to LV dysfunction. Isosorbide added for hypertension/angina. She has a history of remote cath in 2018 in [place] with moderate non obstructive disease noted at that time and unfortunately had aortic dissection during procedure. she had been transferred to [place], but conservative therapies recommended and no surgical intervention required. Ongoing conservative therapies recommended for NSTEMI. Appears euvolemic. Monitor fluid status. May need low dose loop diuretic/spironolactone given LV dysfunction. Elevated D.Dimer on admission - CT scan was negative for PE (although significant artifact limits results), unfortunately demonstrated enlarging pulmonary nodule RUL (previously 6 mm in Spring 2022), now 1.4 cm and hepatic masses, concerning for metastatic disease. This was NOT noted on CT scan from 12/2021 reviewed through [facility]. 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 Pulm nodules have increased in size since then. Discussed with hospitalist. Per family conversation, ongoing conservative therapies recommended. Consider palliative care consult as well. Recommend PT/OT. Consider placement or rehab on discharge. Case discussed with Dr. Shen and hospitalist provider. Will follow. Admission and Anticipated Discharge Date Admission Date: June 03, 2022 Supervising Physician Co-Signing Physician Notes I have seen and examined the patient. Reviewed the case with Anupam and reviewed the medical record. I agree with the plan as outlined above. Subjective Patient resting in bed. Primary complaint is being tired. She denies chest pain. Stable/chronic SOB. Wears supplemental O2 chronically at home. Edema stable. Denies dizziness or lightheadedness. Tolerated 48 hours of heparin, will transition back to Eliquis. No arrhythmias on monitor. Review of Systems Review of Systems: All systems reviewed & are unremarkable except as noted in HPI & below Physical Exam Constitutional: WD/WN, vitals as above + frail appearing; no acute distress Respiratory: normal respiratory effort; no labored breathing Auscultation: + diminished lung sounds; no crackles and no wheezes Cardiovascular: Rate/Rhythm: regular rate and regular rhythm Heart Sounds: + murmur (II/ systolic murmur LSB) Vessels: no JVD Extremities: + edema (non pitting) Gastrointestinal (Abdomen): normal bowel sounds, soft, nontender, no hepatosplenomegaly Psychiatric: A+Ox3, euthymic affect Results & Data ([facility]) Vital Signs (Past 12 Hours) Vital Signs Temp Pulse Pulse Resp BP Pulse Ox Pulse Ox 06/05/22 08:00 73 06/05/22 08:00 06/05/22 07:26 98 06/05/22 07:23 36.7 C 77 19 131/78 98 06/05/22 02:56 37.1 C 70 18 112/64 96 06/04/22 22:15 71 06/04/22 22:47 37.3 C 71 18 123/78 97 O2 Del Method O2 Del Method O2 Flow Rate O2 Flow Rate 06/05/22 08:00 06/05/22 08:00 Nasal Cannula 2 06/05/22 07:26 Nasal Cannula 2 06/05/22 07:23 Nasal Cannula 2 06/05/22 02:56 Nasal Cannula 4 06/04/22 22:15 06/04/22 22:47 Nasal Cannula 4 Laboratory Results Coagulation 06/05/22 Range/Units 05:44 APTT 65.1 H* (21.0-31.0) Seconds Lipids 06/05/22 Range/Units 05:44 Triglycerides 313 H (0-150) mg/dl Cholesterol 159 (0-200) mg/dl HDL Cholesterol 8 mg/dl Cholesterol/HDL Ratio 19.9 H (0-5) CBC 06/05/22 Range/Units 05:44 WBC 11.93 H (4.8-10.8) K/ul RBC 4.12 (3.93-5.22) M/uL Hgb 11.0 L (12.0-16.0) g/dl Hct 33.0 L (34.1-44.9) % Plt Count 238 (130-400) K/uL Comprehensive Metabolic Panel 06/05/22 Range/Units 05:44 Sodium 135 L (136-145) mmol/L Potassium 3.9 (3.5-5.1) mmol/L Chloride 100 (98-107) mmol/L Carbon Dioxide 27 (21-32) mmol/L BUN 12 (6-23) mg/dl Creatinine 0.60 (0.6-1.2) mg/dl Glucose 113 H (70-99(Fasting)) mg/dl Calcium 8.7 (8.5-10.1) mg/dl Intake and Output 06/04/22 06/05/22 06/05/22 22:59 06:59 14:59 Intake Total 1225.95 / 1616.967 319.717 / 1616.967 100.05 / 100.05 Output Total 150 / 150 Balance 1225.95 / 1466.967 169.717 / 1466.967 100.05 / 100.05 Intake: IV 545.95 / 816.967 199.717 / 816.967 100.05 / 100.05 Heparin Sodium/Dextrose 25,000 290.95 / 561.967 199.717 / 561.967 100.05 / 100.05 units In 500 ml @ 1,150 UNITS/ HR 23 mls/hr IV .[id number] [facility] Rx #:[id number] Potassium Phosphate 15 mmol In 255 / 255 Sodium Chloride 0.9% 250 ml @ 88 mls/hr IV ONE ONE Rx#: [id number] Oral 680 / 800 120 / 800 Output: Urine Amount (Catheter) 150 / 150 External 150 / 150 Other: # Unmeasured Voids 1 Weight 88.9 kg Weight Measurement Method Built in [facility] Diagnostic Findings Telemetry reviewed: NSR in the 70's. Occ PAC Medications Administered Current Inpatient Medications Acetaminophen (Acetaminophen 325 Mg Tab) 650 mg PO Q4H PRN PRN Reason: Pain or Fever Stop: 07/03/22 01:45 Apixaban (Apixaban 5 Mg Tablet) 5 mg PO BID [facility] Stop: 07/03/22 08:59 Aspirin (Aspirin 81 Mg Ectab) 81 mg PO QAM [facility] Stop: 07/03/22 08:59 Last Admin: 06/05/22 08:46 Dose: 81 mg Calcium Carbonate (Calcium Carbonate 1250mg Tab) 1,250 mg PO QDL [facility] Stop: 07/03/22 11:29 Last Admin: 06/05/22 08:46 Dose: 1,250 mg Isosorbide Mononitrate (Isosorbide [place] Extended Rel 30 Mg Tabcr) 30 mg PO QAM [facility] Stop: 07/04/22 09:14 Last Admin: 06/05/22 08:46 Dose: 30 mg Losartan Potassium (Losartan Potassium 50 Mg Tab) 50 mg PO QPM [facility] Stop: 07/03/22 20:59 Last Admin: 06/04/22 20:55 Dose: 50 mg Metoprolol Succinate (Metoprolol Succ 25mg Ext Rel Tab) 25 mg PO BID [facility] Stop: 07/03/22 20:59 Last Admin: 06/05/22 08:46 Dose: 25 mg Montelukast Sodium (Montelukast Sodium 10 Mg Tablet) 10 mg PO QPM [facility] Stop: 07/03/22 20:59 Last Admin: 06/04/22 20:55 Dose: 10 mg Nitrofurantoin Macrocrystals (Nitrofurantoin Macrocrystal 50 Mg Cap) 50 mg PO BID [facility] Stop: 06/08/22 23:59 Last Admin: 06/05/22 08:46 Dose: 50 mg Nitroglycerin (Nitroglycerin Sl 0.4 Mg/Tab Tab) 0.4 mg SL UD PRN PRN Reason: Chest Pain Stop: 07/03/22 01:45 Oxybutynin Chloride (Oxybutynin Chloride 5 Mg Tab) 5 mg PO BID [facility] Stop: 07/03/22 08:59 Last Admin: 06/05/22 08:46 Dose: 5 mg Pantoprazole Sodium (Pantoprazole 40 Mg Tab) 40 mg PO DAILYBB [facility] Stop: 07/03/22 06:29 Last Admin: 06/05/22 05:15 Dose: 40 mg Raloxifene HCl (Raloxifene Hcl 60 Mg Tab) 60 mg PO QAM [facility] Stop: 07/03/22 08:59 Last Admin: 06/05/22 08:45 Dose: 60 mg Rosuvastatin Calcium (Rosuvastatin Calcium 20 Mg Tab) 40 mg PO QPM [facility] Stop: 07/05/22 20:59 Sertraline HCl (Sertraline Hcl 50 Mg Tablet) 50 mg PO QAM [facility] Stop: 07/03/22 08:59 Last Admin: 06/05/22 08:46 Dose: 50 mg Vitamin D (Cholecalciferol 1,000 Units 25 Mcg Tab) 1,000 units PO QDL [facility] Stop: 07/03/22 11:29 Last Admin: 06/05/22 08:46 Dose: 1,000 units (1) Aneurysm of thoracic aorta Presence of rupture: without rupture Thoracic aorta location: ascending aorta Qualified Code(s): I71.21 - Aneurysm of the ascending aorta, without rupture (2) Chest pain Chest pain type: precordial pain Qualified Code(s): R07.2 - Precordial pain
[2022-06-05] MEDS: APIXABAN 5 MG TABLET PO SCH ×2 (10:47→20:19)
--- NOTE | 2022-06-05 11:57 | Electrocardiogram Report ---
Test Reason : Blood Pressure : / mmHG Vent. Rate : 070 BPM Atrial Rate : 070 BPM P-R Int : 134 ms QRS Dur : 080 ms QT Int : 390 ms P-R-T Axes : 000 -18 071 degrees QTc Int : 421 ms Poor data quality, interpretation may be adversely affected Sinus rhythm with Premature supraventricular complexes Low voltage QRS Poor R wave progression, consider anterior CO vs. lead placement vs. LVH Diffuse Nonspecific T wave abnormality Abnormal ECG When compared with ECG of 04-JUN-2022 09:47, No significant change Confirmed by Goyo Rai ([id number]) on 06/05/2022 11:57:01 AM Referred By: REFERRED SELF Confirmed By:Goyo Rai
--- NOTE | 2022-06-05 14:30 | Hospitalist Progress Note ---
Date of Service June 05, 2022 Assessment & Plan (1) Non-STEMI (non-ST elevated myocardial infarction): Plan: - presented with chest pain, no n/v, light headedness, shortness of breath - trop peaked at 2894 - ECG without ischemic changes - chest pain resolved since admission - Cardiology on board - Echo showed moderate concentric left ventricular hypertrophy. Hypokinesis to akinesis of the apical and mid segment of the left ventricle with relative sparing of the basal segment. Ejection fraction 35 to 40% - medical management for now with heparin drip, ASA, statin, BB - patient and family likely does not want invasive therapy re cath - IV heparin drip discontinued after 48hrs then transition to Eliquis - Denies any chest pain pain (2) CAD (coronary artery disease): Plan: - chest pain resolved Continue aspirin, statin, beta zane and eliquis (3) Pulmonary nodule: Plan: - increased in size from prior CT to 1.4cm - incidental in setting of CTA for PE - family and patient made aware - will continue with no surveillance as previously discussed with outpatient pulmonary provider - do not want invasive diagnostic procedures or potential treatment is malignancy which is highly likely (4) Hepatic lesion: Plan: - likely represents mets - no follow up per patient and family wishes - patient and family made aware of findings (5) Aneurysm of thoracic aorta: Plan: CTA chest showed aneurysmal dilatation of the ascending thoracic aorta measuring up to 4.4 cm. Continue monitor (6) HTN (hypertension): Plan: - continue home meds (7) HLD (hyperlipidemia): Plan: - continue statin Plan DVT ppx: heparin Drip discontinued Transition to eliquis Code Status: Full Code Dispo: PCU/Telemetry for now Admission and Anticipated Discharge Date Admission Date: June 03, 2022 Subjective Pt was seen and examined for follow of chest pain Lying in bed with no acute distress She said that she feels alittle better Denies any chest pain, palpitation, dizziness Review of Systems Review of Systems: All systems reviewed & are unremarkable except as noted in Subjective Physical Exam Physical Exam: General- No acute distress Head- atraumatic Eyes- PERRL, EOMI, ENT- oropharynx clear Neck- supple, no JVD Lungs- Diminished BS Heart- regular rhythm; +murmur Abdomen- normal bowel sounds, soft, nontender Extremities- no calf tenderness.+edema Neuro- alert, oriented, PERRL, EOMI; no facial palsy; no dysarthria Skin- warm & dry Results & Data Results & Data ([facility]) Vital Signs (Past 12 Hours) Vital Signs Temp Pulse Pulse Resp BP Pulse Ox Pulse Ox 06/05/22 11:23 36.6 C 64 18 109/58 L 100 06/05/22 08:00 73 06/05/22 08:00 06/05/22 07:26 98 06/05/22 07:23 36.7 C 77 19 131/78 98 06/05/22 02:56 37.1 C 70 18 112/64 96 O2 Del Method O2 Del Method O2 Flow Rate O2 Flow Rate 06/05/22 11:23 Nasal Cannula 4 06/05/22 08:00 06/05/22 08:00 Nasal Cannula 2 06/05/22 07:26 Nasal Cannula 2 06/05/22 07:23 Nasal Cannula 2 06/05/22 02:56 Nasal Cannula 4 (1) Aneurysm of thoracic aorta Presence of rupture: without rupture Thoracic aorta location: ascending aorta Qualified Code(s): I71.21 - Aneurysm of the ascending aorta, without rupture
[2022-06-05] MEDS: MONTELUKAST SODIUM 10 MG TABLET PO SCH (20:20)
[2022-06-05] MEDS: ROSUVASTATIN CALCIUM 20 MG TAB PO SCH (20:20)
[2022-06-05] MEDS: LOSARTAN POTASSIUM 50 MG TAB PO SCH (20:22)
[2022-06-06] MEDS: PANTOprazole 40 MG TAB PO SCH (05:42)
[2022-06-06] MEDS: ASPIRIN 81 MG ECTAB PO SCH (08:06)
[2022-06-06] MEDS: nitrofurantoin macrocrystaL 50 MG CAP PO SCH ×2 (08:06→20:48)
[2022-06-06] MEDS: SERTRALINE HCL 50 MG TABLET PO SCH (08:06)
[2022-06-06] MEDS: ISOSORBIDE MONO EXTENDED REL 30 MG TABCR PO SCH (08:06)
[2022-06-06] MEDS: RALOXIFENE HCL 60 MG TAB PO SCH (08:07)
[2022-06-06] MEDS: OXYBUTYNIN CHLORIDE 5 MG TAB PO SCH ×2 (08:07→20:49)
[2022-06-06] MEDS: APIXABAN 5 MG TABLET PO SCH ×2 (08:07→20:47)
[2022-06-06] MEDS: METOPROLOL SUCC 25MG EXT REL TAB PO SCH ×2 (08:08→20:48)
--- NOTE | 2022-06-06 10:15 | Cardiology Progress Note ---
Date of Service June 06, 2022 Assessment & Plan (1) Non-STEMI (non-ST elevated myocardial infarction): (2) Chest pain: (3) LV dysfunction: (4) Pulmonary nodule: (5) Hepatic lesion: (6) Aneurysm of thoracic aorta: (7) CAD (coronary artery disease): Plan Patient admitted to [facility] after several hours of chest pain, consistent with angina Chest pain resolved with 1 Nitro spray by EMS Serial HS troponin peaking at 2894, consistent with NSTEMI. IV heparin initiated due to reduced LV function with apical wall motion abnormality (Takosubo vs myocardial ischemia). IV heparin was continued for 48 hours and stopped. she was transitioned back to home dose Eliquis 5 mg BID She remains chest pain free since admission. admission. Continue ASA, losartan, rosuvastatin (dose increased). Metoprolol tartrate transitioned to metoprolol succinate due to LV dysfunction. Isosorbide added for hypertension/angina. Continue meds on discharge. She has a history of remote cath in 2018 in [place] with moderate non obstructive disease noted at that time and unfortunately had aortic dissection during procedure. she had been transferred to [place], but conservative therapies recommended and no surgical intervention required. Ongoing conservative therapies recommended for NSTEMI. Appears euvolemic. Monitor fluid status. Elevated D.Dimer on admission - CT scan was negative for PE (although significant artifact limits results), unfortunately demonstrated enlarging pu lmonary nodule RUL (previously 6 mm in Spring 2022), now 1.4 cm and hepatic masses, concerning for metastatic disease. This was NOT noted on CT scan from 12/2021 reviewed through [facility]. 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 Pulm nodules have increased in size since then. Discussed with hospitalist. Per family conversation, ongoing conservative therapies recommended. Consider palliative care consult as well. Recommend PT/OT. Consider placement or rehab on discharge. She is established with [facility] and [facility] Pul[facility] and recommend f/u appointments on discharge. No further cardiac testing recommended at this time. Continue meds as outlined above on discharge. Will sign off. Please contact education site manager ticketing clerk if additional questions or concerns arise. Case discussed with Dr. Shen Admission and Anticipated Discharge Date Admission Date: June 03, 2022 Supervising Physician Co-Signing Physician Notes Reviewed the medical record and discussed the case with Ms. Bo. I have seen and examined the patient. I agree that the patient can be discharged with outpatient follow-up. Subjective Patient laying in bed without complaints of chest pain or dyspnea. No recurrent symptoms since hospital admission. Chronic supplemental O2 needed and at baseline. No orthopnea, PND or increased edema. No dizziness. Review of Systems Review of Systems: All systems reviewed & are unremarkable except as noted in HPI & below Physical Exam Constitutional: WD/WN, vitals as above + frail appearing; no acute distress Respiratory: normal respiratory effort; no labored breathing Auscultation: + diminished lung sounds; no crackles and no wheezes Cardiovascular: Rate/Rhythm: regular rate and regular rhythm Heart Sounds: + murmur (II/ systolic murmur LSB) Vessels: no JVD Extremities: + edema (non pitting) Gastrointestinal (Abdomen): normal bowel sounds, soft, nontender, no hepatosplenomegaly Psychiatric: A+Ox3, euthymic affect Results & Data ([facility]) Vital Signs (Past 12 Hours) Vital Signs Temp Pulse Pulse Resp BP Pulse Ox O2 Del Method 06/06/22 09:38 61 06/06/22 08:46 Nasal Cannula 06/06/22 07:42 37.1 C 74 20 131/74 97 Nasal Cannula 06/06/22 02:52 36.4 C L 71 16 102/67 97 Nasal Cannula 06/05/22 23:41 75 06/05/22 22:29 36.5 C 74 20 133/67 97 Nasal Cannula O2 Flow Rate 06/06/22 09:38 06/06/22 08:46 2 06/06/22 07:42 4.0 06/06/22 02:52 4 06/05/22 23:41 06/05/22 22:29 4 Laboratory Results Intake and Output 06/05/22 06/06/22 06/06/22 22:59 06:59 14:59 Intake Total 150 / 458.317 150 / 458.317 Output Total 950 / 950 Balance 150 / -491.683 -800 / -491.683 Intake: Oral 150 / 300 150 / 300 Output: Urine 500 / 500 Urine Amount (Catheter) 450 / 450 External 450 / 450 Other: # Unmeasured Voids 1 Weight 89.6 kg Weight Measurement Method Built in [facility] Diagnostic Findings Telemetry reviewed: NSR with PAC's. No concerning arrhythmias Medications Administered Current Inpatient Medications Acetaminophen (Acetaminophen 325 Mg Tab) 650 mg PO Q4H PRN PRN Reason: Pain or Fever Stop: 07/03/22 01:45 Last Admin: 06/05/22 20:44 Dose: 650 mg Apixaban (Apixaban 5 Mg Tablet) 5 mg PO BID [facility] Stop: 07/03/22 08:59 Last Admin: 06/06/22 08:07 Dose: 5 mg Aspirin (Aspirin 81 Mg Ectab) 81 mg PO QAM [facility] Stop: 07/03/22 08:59 Last Admin: 06/06/22 08:06 Dose: 81 mg Calcium Carbonate (Calcium Carbonate 1250mg Tab) 1,250 mg PO QDL [facility] Stop: 07/03/22 11:29 Last Admin: 06/05/22 08:46 Dose: 1,250 mg Isosorbide Mononitrate (Isosorbide [place] Extended Rel 30 Mg Tabcr) 30 mg PO QAM [facility] Stop: 07/04/22 09:14 Last Admin: 06/06/22 08:06 Dose: 30 mg Losartan Potassium (Losartan Potassium 50 Mg Tab) 50 mg PO QPM [facility] Stop: 07/03/22 20:59 Last Admin: 06/05/22 20:22 Dose: 50 mg Metoprolol Succinate (Metoprolol Succ 25mg Ext Rel Tab) 25 mg PO BID [facility] Stop: 07/03/22 20:59 Last Admin: 06/06/22 08:08 Dose: 25 mg Montelukast Sodium (Montelukast Sodium 10 Mg Tablet) 10 mg PO QPM [facility] Stop: 07/03/22 20:59 Last Admin: 06/05/22 20:20 Dose: 10 mg Nitrofurantoin Macrocrystals (Nitrofurantoin Macrocrystal 50 Mg Cap) 50 mg PO BID [facility] Stop: 06/08/22 23:59 Last Admin: 06/06/22 08:06 Dose: 50 mg Nitroglycerin (Nitroglycerin Sl 0.4 Mg/Tab Tab) 0.4 mg SL UD PRN PRN Reason: Chest Pain Stop: 07/03/22 01:45 Oxybutynin Chloride (Oxybutynin Chloride 5 Mg Tab) 5 mg PO BID [facility] Stop: 07/03/22 08:59 Last Admin: 06/06/22 08:07 Dose: 5 mg Pantoprazole Sodium (Pantoprazole 40 Mg Tab) 40 mg PO DAILYBB [facility] Stop: 07/03/22 06:29 Last Admin: 06/06/22 05:42 Dose: 40 mg Raloxifene HCl (Raloxifene Hcl 60 Mg Tab) 60 mg PO QAM [facility] Stop: 07/03/22 08:59 Last Admin: 06/06/22 08:07 Dose: 60 mg Rosuvastatin Calcium (Rosuvastatin Calcium 20 Mg Tab) 40 mg PO QPM [facility] Stop: 07/05/22 20:59 Last Admin: 06/05/22 20:20 Dose: 40 mg Sertraline HCl (Sertraline Hcl 50 Mg Tablet) 50 mg PO QAM [facility] Stop: 07/03/22 08:59 Last Admin: 06/06/22 08:06 Dose: 50 mg Vitamin D (Cholecalciferol 1,000 Units 25 Mcg Tab) 1,000 units PO QDL [facility] Stop: 07/03/22 11:29 Last Admin: 06/05/22 08:46 Dose: 1,000 units (1) Aneurysm of thoracic aorta Presence of rupture: without rupture Thoracic aorta location: ascending aorta Qualified Code(s): I71.21 - Aneurysm of the ascending aorta, without rupture (2) Chest pain Chest pain type: precordial pain Qualified Code(s): R07.2 - Precordial pain
[2022-06-06] MEDS: CALCIUM CARBONATE 1250MG TAB PO SCH (11:47)
[2022-06-06] MEDS: CHOLECALCIFEROL 1,000 UNITS 25 MCG TAB PO SCH (11:47)
--- NOTE | 2022-06-06 14:20 | Hospitalist Progress Note ---
Date of Service June 06, 2022 Assessment & Plan (1) Non-STEMI (non-ST elevated myocardial infarction): Plan: - presented with chest pain, no n/v, light headedness, shortness of breath - trop peaked at 2894 - ECG without ischemic changes - chest pain resolved since admission - Cardiology on board - Echo showed moderate concentric left ventricular hypertrophy. Hypokinesis to akinesis of the apical and mid segment of the left ventricle with relative sparing of the basal segment. Ejection fraction 35 to 40% - medical management for now with heparin drip, ASA, statin, BB - patient and family likely does not want invasive therapy re cath - IV heparin drip discontinued after 48hrs then transition to Eliquis - Denies any chest pain pain - cardio recommended to continue ASA, losartan, rosuvastatin (dose increased). - Metoprolol tartrate transitioned to metoprolol succinate due to LV dysfunction. - Isosorbide added for hypertension/angina. - No further cardiac testing recommended at this time. - Continue current meds on discharge. (2) CAD (coronary artery disease): Plan: chest pain resolved Continue aspirin, statin, beta zane and eliquis (3) Pulmonary nodule: Plan: - increased in size from prior CT to 1.4cm - incidental in setting of CTA for PE - family and patient made aware - will continue with no surveillance as previously discussed with outpatient pulmonary provider - do not want invasive diagnostic procedures or potential treatment is malignancy which is highly likely - Follow up with [facility] pulmonology outpatient (4) Hepatic lesion: Plan: - likely represents mets - no follow up per patient and family wishes - patient and family made aware of findings (5) Aneurysm of thoracic aorta: Plan: CTA chest showed aneurysmal dilatation of the ascending thoracic aorta measuring up to 4.4 cm. Continue monitor (6) HTN (hypertension): Plan: - continue home meds (7) HLD (hyperlipidemia): Plan: - continue statin Weakness Pt lives alone and not safe to go home PT/OT on board recommended SNF Fall precaution Plan DVT ppx: On Eliquis Code Status: Full Code Disposition Waiting for placement to SNF Admission and Anticipated Discharge Date Admission Date: June 03, 2022 Subjective Pt was seen and examined for follow of chest pain Lying in bed with no acute distress She said that she feels weak She said that her breathing stable on 4L NC Pt has been denied SNF. I called the insurance for peer to peer review Denies any chest pain, palpitation, dizziness Review of Systems Review of Systems: All systems reviewed & are unremarkable except as noted in Subjective Physical Exam Physical Exam: General- No acute distress Head- atraumatic Eyes- PERRL, EOMI, ENT- oropharynx clear Neck- supple, no JVD Lungs- Diminished BS Heart- regular rhythm; +murmur Abdomen- normal bowel sounds, soft, nontender Extremities- no calf tenderness.+edema Neuro- alert, oriented, PERRL, EOMI; no facial palsy; no dysarthria Skin- warm & dry Results & Data Results & Data ([facility]) Vital Signs (Past 12 Hours) Vital Signs Temp Pulse Pulse Resp BP Pulse Ox O2 Del Method 06/06/22 11:40 37.0 C 75 18 106/60 97 Nasal Cannula 06/06/22 09:38 61 06/06/22 08:46 Nasal Cannula 06/06/22 07:42 37.1 C 74 20 131/74 97 Nasal Cannula 06/06/22 02:52 36.4 C L 71 16 102/67 97 Nasal Cannula O2 Flow Rate 06/06/22 11:40 4.0 06/06/22 09:38 06/06/22 08:46 2 06/06/22 07:42 4.0 06/06/22 02:52 4 (1) Aneurysm of thoracic aorta Presence of rupture: without rupture Thoracic aorta location: ascending aorta Qualified Code(s): I71.21 - Aneurysm of the ascending aorta, without rupture
[2022-06-06] MEDS: LOSARTAN POTASSIUM 50 MG TAB PO SCH (20:47)
[2022-06-06] MEDS: MONTELUKAST SODIUM 10 MG TABLET PO SCH (20:48)
[2022-06-06] MEDS: ROSUVASTATIN CALCIUM 20 MG TAB PO SCH (20:49)
[2022-06-07] MEDS: PANTOprazole 40 MG TAB PO SCH (06:43)
[2022-06-07 07:05] VITALS: TEMP 97.5
[2022-06-07] MEDS: nitrofurantoin macrocrystaL 50 MG CAP PO SCH (09:17)
[2022-06-07] MEDS: ISOSORBIDE MONO EXTENDED REL 30 MG TABCR PO SCH (09:17)
[2022-06-07] MEDS: RALOXIFENE HCL 60 MG TAB PO SCH (09:17)
[2022-06-07] MEDS: SERTRALINE HCL 50 MG TABLET PO SCH (09:17)
[2022-06-07] MEDS: APIXABAN 5 MG TABLET PO SCH (09:17)
[2022-06-07] MEDS: METOPROLOL SUCC 25MG EXT REL TAB PO SCH (09:17)
[2022-06-07] MEDS: OXYBUTYNIN CHLORIDE 5 MG TAB PO SCH (09:18)
[2022-06-07] MEDS: ASPIRIN 81 MG ECTAB PO SCH (09:18)
[2022-06-07] MEDS: CALCIUM CARBONATE 1250MG TAB PO SCH (11:08)
[2022-06-07] MEDS: CHOLECALCIFEROL 1,000 UNITS 25 MCG TAB PO SCH (11:08)
[2022-06-07 11:34] VITALS: O2SAT 96
[2022-06-07 12:08] VITALS: BP 109/58; PULSE 82
--- NOTE | 2022-06-07 14:24 | Discharge Summary ---
Date of Service June 07, 2022 Admission HPI Per Admitting Provider CHIEF COMPLAINT: Chest pain. HISTORY OF PRESENT ILLNESS: An 86-year-old female with past medical history significant for hyperlipidemia, impaired fasting glucose, history of asthma, allergic rhinitis, hypertension, GERD, vitamin D deficiency, history of constipation, female stress incontinence, osteoporosis, history of depression and anxiety,hx of DVT/PE after right femur fx repair this May who lives alone at home, ambulates with a walker. She is on regular diet. Was brought in because of chest pain. Son and [id number] are in the room. The patient, around 7:00 p.m., she had severe chest pain, it was also radiating to her left arm. When it was not getting better, she pressed the emergency button and brought in here. The patient is somewhat hard of hearing, but answering appropriately. She says after aspirin and nitroglycerin were given, the pain is resolved, but later she had some soreness in the chest, but right now she is saying the pain is gone. She denies any shortness of breath, no dizziness, no sweating, no nausea, no abdominal pain. Normal bowel and bladder movements. She has chronic swelling in the legs. Denies any headache. Vision is okay. She says she has some sinusitis and chronic cough. No sore throat, no difficulty swallowing. Appetite is not great. No fevers. Currently, resting comfortably and hemodynamically stable. Admission Exam Per Admitting Provider GENERAL: The patient is old and frail, very hard of hearing, not in acute distress. VITAL SIGNS: Temperature 36.5, pulse 94, respiratory rate 26, blood pressure 143/118, oxygen 97% on 3 liters. HEENT: Pupils equal, round and reactive to light. Oral mucosa dry. NECK: No JVD, no neck masses. CARDIOVASCULAR: S1 and S2 heard. Regular rate and rhythm. No murmur, no gallop. RESPIRATORY SYSTEM: Normal AP diameter. No accessory muscle use. No wheezing, no crackles. ABDOMEN: Soft, bowel sounds present, nontender, no distention. CENTRAL NERVOUS SYSTEM: Cranial nerves II-XII grossly intact, nonfocal. EXTREMITIES: Lower extremity edema present, no erythema seen. Principal Diagnosis Non-STEMI (non-ST elevated myocardial infarction): CAD (coronary artery disease): Pulmonary nodule: Hepatic lesion: Aneurysm of thoracic aorta: HTN (hypertension): HLD (hyperlipidemia): Discharge Exam General- No acute distress Head- atraumatic Eyes- PERRL, EOMI, ENT- oropharynx clear Neck- supple, no JVD Lungs- Diminished BS Heart- regular rhythm; +murmur Abdomen- normal bowel sounds, soft, nontender Extremities- no calf tenderness.+edema Neuro- alert, oriented, PERRL, EOMI; no facial palsy; no dysarthria Skin- warm & dry Discharge Data Allergies Allergy/AdvReac Type Severity Reaction Status Date / Time Penicillins Allergy Rash Verified 06/02/22 23:14 Sulfa (Sulfonamide Allergy Rash Verified 06/02/22 23:14 Antibiotics) Consultations 06/02/22 23:19 ED Decision to Admit Stat 06/04/22 08:00 Consult Cardiology Routine Ordered Studies 06/02/22 23:06 CT angio chest PE protocol Stat Laboratory Results WBC 11.93 K/ul (4.8-10.8) H 06/05/22 05:44 RBC 4.12 M/uL (3.93-5.22) 06/05/22 05:44 Hgb 11.0 g/dl (12.0-16.0) L 06/05/22 05:44 Hct 33.0 % (34.1-44.9) L 06/05/22 05:44 MCV 80.1 fL (80.0-100.0) 06/05/22 05:44 MCH 26.7 pg (25.0-34.0) 06/05/22 05:44 MCHC 33.3 g/dL (32.0-36.0) 06/05/22 05:44 RDW Std Deviation 45.1 fL (36.4-46.3) 06/05/22 05:44 RDW Coeff of Mercedes 15.7 % (11.5-14.5) H 06/05/22 05:44 Plt Count 238 K/uL (130-400) 06/05/22 05:44 MPV 10.7 fL (9.4-12.3) 06/05/22 05:44 Immature Gran % (Auto) 1.2 % 06/03/22 05:28 Neut % (Auto) 74.5 % 06/03/22 05:28 Lymph % (Auto) 12.7 % 06/03/22 05:28 [place] % (Auto) 10.7 % 06/03/22 05:28 Eos % (Auto) 0.4 % 06/03/22 05:28 Baso % (Auto) 0.5 % 06/03/22 05:28 Neut # (Auto) 9.01 K/uL (1.4-6.5) H 06/03/22 05:28 Lymph # (Auto) 1.53 K/uL (1.2-3.4) 06/03/22 05:28 [place] # (Auto) 1.29 K/uL (0.24-0.82) H 06/03/22 05:28 Eos # (Auto) 0.05 K/uL (0-0.50) 06/03/22 05:28 Baso # (Auto) 0.06 K/uL (0-0.2) 06/03/22 05:28 Immature Gran # (Auto) 0.15 K/uL (0.00-0.02) H 06/03/22 05:28 PT 13.7 Seconds (9.0-12.0) H 06/02/22 21:15 INR 1.3 (0.9-1.1) H 06/02/22 21:15 APTT 65.1 Seconds (21.0-31.0) H* 06/05/22 05:44 PTT Ratio 2.4 06/05/22 05:44 D-Dimer 6810 ug/L FEU (0-500) H* 06/02/22 21:15 Sodium 135 mmol/L (136-145) L 06/05/22 05:44 Potassium 3.9 mmol/L (3.5-5.1) 06/05/22 05:44 Chloride 100 mmol/L (98-107) 06/05/22 05:44 Carbon Dioxide 27 mmol/L (21-32) 06/05/22 05:44 Anion Gap 8 (3-11) 06/05/22 05:44 BUN 12 mg/dl (6-23) 06/05/22 05:44 Creatinine 0.60 mg/dl (0.6-1.2) 06/05/22 05:44 Est Cr Clr Drug Dosing 69.3 ml/min 06/05/22 05:44 Est GFR ( Amer) 97.0 ml/min 06/05/22 05:44 Est GFR (Non-Af Amer) 83.7 ml/min 06/05/22 05:44 BUN/Creatinine Ratio 20.0 (10-20) 06/05/22 05:44 Glucose 113 mg/dl (70-99(Fasting)) H 06/05/22 05:44 Estimat Average Glucose 114 mg/dl 06/03/22 05:28 Hemoglobin A1c 5.6 % (4.5-5.6) 06/03/22 05:28 Calcium 8.7 mg/dl (8.5-10.1) 06/05/22 05:44 Phosphorus 2.8 mg/dl (2.5-4.9) 06/05/22 05:44 Magnesium 2.0 mg/dl (1.7-2.4) 06/04/22 05:26 Total Bilirubin 0.8 mg/dl (0.2-1.0) 06/04/22 05:26 AST 40 U/L (13-39) H 06/04/22 05:26 ALT 6 U/L (7-52) L 06/04/22 05:26 Alkaline Phosphatase 94 U/L (34-104) 06/04/22 05:26 Troponin I High Sens 2745.6 pg/ml (0-14) H* 06/03/22 11:00 Total Protein 6.8 gm/dl (6.0-8.3) 06/04/22 05:26 Albumin 3.4 gm/dl (3.4-5.0) 06/04/22 05:26 Globulin 3.4 gm/dl (2.5-4.0) 06/04/22 05:26 Albumin/Globulin Ratio 1.0 (0.9-2) 06/04/22 05:26 Triglycerides 313 mg/dl (0-150) H 06/05/22 05:44 Cholesterol 159 mg/dl (0-200) 06/05/22 05:44 LDL Cholesterol, Calc 88 mg/dl 06/05/22 05:44 VLDL Cholesterol, Calc 63 mg/dl (0-30) H 06/05/22 05:44 HDL Cholesterol 8 mg/dl 06/05/22 05:44 Cholesterol/HDL Ratio 19.9 (0-5) H 06/05/22 05:44 Lipase 32 U/L (11-82) 06/02/22 22:44 SARS-CoV-2, RNA, NAAT NEGATIVE (NEGATIVE) 06/07/22 10:00 Impressions Chest X-Ray 06/02/22 21:18 SINGLE VIEW CHEST CLINICAL HISTORY: Atypical chest pain. FINDINGS: An AP, portable, upright chest radiograph is obtained. No prior studies are available for comparison at the time of dictation. The heart is enlarged noting atherosclerotic calcification of the thoracic aorta. The pulmonary vasculature is noncongested. Chronic interstitial thickening is similar to previous. There is elevation of the right hemidiaphragm with bibasilar scarring/atelectasis. No airspace consolidation or large pleural effusion is seen. A pulmonary nodule in the right upper lobe measures 1.4 cm. No pneumothorax is seen. The skeletal structures are osteopenic. The bony thorax is grossly intact. IMPRESSION: 1. Cardiomegaly with no acute cardiopulmonary abnormality. 2. A 1.4 cm pulmonary nodule is seen in the right upper lobe. ACT 112: Negative or not required by law. Electronically signed by: Vito De Los Santos M.D. 06/03/2022 7:59 AM Chest CTA 06/02/22 23:06 CT ANGIOGRAM OF THE CHEST CLINICAL HISTORY: Atypical/left-sided chest pain. Dyspnea. COMPARISON STUDY: Chest x-ray dated 06/02/2022. TECHNIQUE: Following the IV administration of 105 cc of Optiray 320, CT angiogram of the chest was performed from the upper abdomen to the thoracic inlet utilizing the pulmonary embolus protocol. Images are reviewed in the axial, sagittal, and coronal planes. 3-D MIPS images are created and assessed. IV contrast was administered without complication. A dose lowering technique was utilized adhering to the principles of ALARA. The examination is degraded by motion artifact. CT DOSE: 473.64 mGy.cm FINDINGS: Thyroid: Imaged portions of the thyroid gland are normal in size and atten uation. Thoracic aorta: There is atherosclerotic calcification of the thoracic aorta. There is aneurysmal dilatation of the ascending thoracic aorta which measures up to 4.4 cm in diameter. The remainder of the thoracic aorta is normal in caliber, and the arch demonstrates standard 3-vessel anatomy. No dissection is seen. Pulmonary vasculature: The pulmonary trunk is dilated, measuring up to 3.6 cm. This indicates pulmonary artery hypertension. There are no filling defects identified in main, lobar, or segmental pulmonary branches to suggest pulmonary embolus. Evaluation of the distal segmental and subsegmental branches is degraded by motion artifact. Heart: The heart is enlarged and without pericardial effusion. The coronary arteries are densely calcified. Lungs and pleural spaces: Evaluation of the lung parenchyma is significantly degraded by motion artifact. There is elevation of the right hemidiaphragm. No airspace consolidation typical for pneumonia or pleural effusion is identified. A 1.4 cm lobulated pulmonary nodule is seen in the right upper lobe on image #160. There are 2 right middle lobe pulmonary nodules seen on images #107 and #124 which measure up to 6 mm. A 4 mm left apical nodule is seen on image #173. Scarring/atelectasis is seen at the lung bases. Mediastinum: There is no mediastinal lymphadenopathy. [place]: Clear. Axillae: There is no axillary lymphadenopathy. Upper abdomen: Numerous hepatic masses are consistent with multifocal hepatic metastatic disease. Skeletal structures: The skeletal structures are osteopenic. Spondylotic change is noted throughout the spine. Arthritic change is seen in the shoulders. No lytic or blastic bony lesions are seen. IMPRESSION: 1. Motion degraded examination. 2. There is no evidence of pulmonary embolus in the main, lobar, or segmental pulmonary arteries. 3. There is no airspace consolidation typical for pneumonia or pleural effusion. 4. There is evidence of diffuse/multifocal hepatic metastatic disease. 5. Scattered pulmonary nodules as above. The largest is in the right upper lobe and measures 1.4 cm. These are pathologically indeterminate but highly suspicious for neoplasm given the hepatic findings. 6. Cardiomegaly with evidence of pulmonary artery hypertension. 7. Aneurysmal dilatation of the ascending thoracic aorta measuring up to 4.4 cm. 8. Additional findings as above. ACT 112: Negative or not required by law. Electronically signed by: Vito De Los Santos M.D. 06/03/2022 7:12 AM Hospital Course (1) Non-STEMI (non-ST elevated myocardial infarction): - presented with chest pain, no n/v, light headedness, shortness of breath - trop peaked at 2894 - ECG without ischemic changes - chest pain resolved since admission - Cardiology on board - Echo showed moderate concentric left ventricular hypertrophy. Hypokinesis to akinesis of the apical and mid segment of the left ventricle with relative sparing of the basal segment. Ejection fraction 35 to 40% - medical management for now with heparin drip, ASA, statin, BB - patient and family likely does not want invasive therapy re cath - IV heparin drip discontinued after 48hrs then transition to Eliquis - Denies any chest pain pain - cardio recommended to continue ASA, losartan, rosuvastatin (dose increased). - Metoprolol tartrate transitioned to metoprolol succinate due to LV dysfunction. - Isosorbide added for hypertension/angina. - No further cardiac testing recommended at this time. - Continue current meds on discharge. (2) CAD (coronary artery disease): chest pain resolved Continue aspirin, statin, beta zane and eliquis (3) Pulmonary nodule: - increased in size from prior CT to 1.4cm - incidental in setting of CTA for PE - family and patient made aware - will continue with no surveillance as previously discussed with outpatient pulmonary provider - do not want invasive diagnostic procedures or potential treatment is malignancy which is highly likely - Follow up with [facility] pulmonology outpatient (4) Hepatic lesion: - likely represents mets - no follow up per patient and family wishes - patient and family made aware of findings - Continue outpatient follow up with your provider for the lesion in the liver (5) Aneurysm of thoracic aorta: CTA chest showed aneurysmal dilatation of the ascending thoracic aorta measuring up to 4.4 cm. Continue monitor (6) HTN (hypertension): - continue home meds (7) HLD (hyperlipidemia): - continue statin Weakness Pt lives alone and not safe to go home PT/OT on board recommended SNF Fall precaution Plan DVT ppx: On Eliquis Code Status: Full Code Disposition Discharge for placement to SNF Total Time Total Time Spent Total Time Spent (In Minutes): 35 minutes Discharge Plan Discharge Items Patient Disposition: Home - Self-Care Reason For Visit: CHEST PAIN Discharge Diagnosis: Non-STEMI (non-ST elevated myocardial infarction): CAD (coronary artery disease): Pulmonary nodule: Hepatic lesion: Aneurysm of thoracic aorta: HTN (hypertension): HLD (hyperlipidemia): Activity: Resume your previous activity Non-emergency contact: Primary Care Provider, [employer], [employer]er and Tree Wrapper Call non-emergency contact if: you have any medication questions and your symptoms worsen Follow-up/Referrals: Salty Solis [Primary Care Provider] - Diet: Heart Healthy Addtl Attending Provider Instructions: Follow up with your primary care provider once discharge from [facility] Follow up with your cardiology ([facility]) outpatient ( please call for the appointment) Follow up with Pulmonology at [facility] outpatient for follow up of the lung nodule Continue outpatient follow up with your provider for the lesion in the liver Continue oxygen 2 to 3 liter nasal canula to keep oxygen saturation above 90% Continue physical and occupational therapy Fall precaution Seek medical attention if your symptoms worsening Pending Studies at Discharge: No Stand-Alone Forms: My [employer], Smoking Cessation Medications and DC Order Prescriptions: New isosorbide mononitrate 30 mg Tablet Extended Release 24 Hr 30 mg PO QAM Qty: 30 0RF metoprolol succinate 25 mg Tablet Extended Release 24 Hr 25 mg PO BID Qty: 60 0RF aspirin 81 mg Tablet,Delayed Release (Dr/Ec) 81 mg PO QAM Qty: 30 0RF nitroglycerin [Nitrostat] 0.4 mg Tablet, Sublingual 0.4 mg sublingual UD PRN (Reason: chest pain) Qty: 30 0RF Continued nitrofurantoin macrocrystal 50 mg capsule 50 mg PO BID Rx Instructions: take for 7 days ordered 06/02/22 raloxifene 60 mg tablet 60 mg PO QAM montelukast 10 mg tablet 10 mg PO QPM oxybutynin chloride 5 mg tablet 5 mg PO BID sertraline 50 mg tablet 50 mg PO QAM Eliquis 5 mg tablet 5 mg PO BID pantoprazole 20 mg tablet,delayed release (DR/EC) 20 mg PO DAILYBB losartan 25 mg tablet 50 mg PO QPM Rx Instructions: 2 tablet dose calcium carbonate 500 mg calcium (1,250 mg) Tablet,Chewable 500 mg PO .DAILY WITH LUNCH cholecalciferol (vitamin D3) [Vitamin D3] 25 mcg (1,000 unit) Tablet 25 mcg PO .DAILY WITH LUNCH Changed rosuvastatin 20 mg tablet 40 mg PO QPM Qty: 60 0RF Discontinued metoprolol tartrate 25 mg tablet 25 mg PO BID Discharge Orders: Discharge Order (Routine); Ordered 06/07/22 Ordered By: Natalie Buitrago Admission Data Admit Date/Time: 06/03/22 14:38 Attending Provider: Natalie Buitrago Admit Provider: Zana Guerrero Primary Care Provider: Salty Solis Other Providers: Zana Guerrero ; Richie Kellogg ; Kp Forbes ; Torsten Kelley ; Gordon Reid ; Jacob Shen ; Hola Wade ; Iman Bo ; Maria De Jesus Oconnor ; Cassia Mckoy ; Peter Calabrese ; [facility] ; [facility] Other Interventions: Discharge Summary Assessment (RN) Last Done: 06/07/22 12:06
== END 2022-06-07 14:28 | DRG 281 ==
LOC: ED 20:59 → 2E 20:59 → SUATTDRO 06-03 14:38